=== PATIENT | male | born 1960 | race Two or more races ===

== ENCOUNTER 2024-07-20 02:49 | Emergency (ER) | payer MEDICARE, MEDICAID, SELFPAY ==
[2024-07-20] VITALS (7 sets, daily range): BP systolic 115–141; BP diastolic 69–77; PULSE 65–99; RESP 15–20; TEMP 36.7–37; O2SAT 94–98; BMI 24.5
--- NOTE | 2024-07-20 03:03 | XR_ITS ---
EXAMINATION: XR hip LT w pelvis 2-3V ORDERING PROVIDER: Milton Marrero MD HISTORY: fall TECHNIQUE: 3 radiographs of the pelvis and left hip were obtained. COMPARISON: 01/07/2024, pelvis and right hip radiographs. FINDINGS: Left hip arthroplasty changes. Similar mild uncovering of the lateral femoral head component. No periarticular lucencies or evidence of hardware fracture. Similar small bony foci about the left hip component may represent some heterotopic ossifications. Moderate right hip calcifications. Similar 1.7 cm density projects over the scrotum of uncertain clinical significance. Moderate rectal and colonic stool burden. IMPRESSION: Left hip arthroplasty changes without evidence of acute hardware complication or acute bony findings.
--- NOTE | 2024-07-20 03:05 | PD.EDADULT ---
ED General RME/HPI General Chief complaint: Extremity Injury, Lower Stated complaint: FALL Time Seen by Provider: 07/20/24 04:07 Arrival date/time: 07/20/24 02:49 RME / HPI RME / HPI narrative: Patient is 64 years old male with PMH of liver cirrhosis, Anastasia's disease, hypertension, GERD, chronic venous stasis dermatitis and multiple falls presented to the ED from [facility]F after he fell. He reports he got angry at nursing staff and decided to fall from the bed. He did not hit his head and landed directly on his left hip. He complains of left hip pain. He denies any chest pain, SOB, abdominal pain, shoulder pain, neck pain. Related Data Home Medications ?Medication ?Instructions ?Recorded ?Confirmed ascorbic acid (vitamin C) 500 mg 500 mg PO QDAY 04/05/23 02/18/24 tablet (Vitamin C) cholecalciferol (vitamin D3) 25 50 mcg PO QDAY 04/05/23 02/18/24 mcg (1,000 unit) tablet (Vitamin D3) lactulose 20 gram/30 mL oral 30 g PO QID high ammonia level 04/05/23 02/18/24 solution magnesium hydroxide 400 mg/5 mL 30 ml PO Q72H PRN Constipation 04/05/23 02/18/24 oral suspension (Milk of Magnesia) pantoprazole 40 mg tablet,delayed 40 mg PO QDAY 04/05/23 02/18/24 release spironolactone 25 mg tablet 37.5 mg PO HS fluid 04/05/23 02/18/24 retention/cirrhosis aluminum-mag hydroxide-simethicone 30 ml PO Q6H 02/05/24 02/18/24 200 mg-200 mg-20 mg/5 mL oral susp amino acids-protein hydrolysate 15 30 ea PO QDAY 02/05/24 02/18/24 gram-100 kcal/30 mL oral liquid pkt (Pro-Stat Sugar Free) melatonin 3 mg tablet 3 mg PO HS PRN for supplement 02/05/24 02/18/24 zinc acetate 50 mg (zinc) capsule 50 mg PO BID anastasia's disease 02/05/24 02/18/24 Previous Rx's ?Medication ?Instructions ?Recorded eyemxjmpauum-olppmctv-rzbaql 1 tab PO QDAY #30 tabs 03/26/23 tablet (Multivitamin 50 Plus tablet) hydrocodone 5 mg-acetaminophen 325 1 tab PO Q8H PRN pain #20 tabs 01/06/ mg tablet Allergies Allergy/AdvReac Type Severity Reaction Status Date / Time clavulanic acid (From Allergy Severe Hives Verified 07/20/24 03:20 Augmentin) Review of Systems Review of Systems Systems Reviewed: All systems reviewed, normal except as documented ED Exam Narrative Physical exam: Gen: Well-developed and well-nourished male. HEENT: NCAT, PERRLA, EOMI, MMM, anicteric conjunctivae, poor dentition. CVS: normal S1 and S2. RRR. No M/R/G. Resp: CTA B/L. No rhonchi, rales, crackles or wheezing. Abd: soft, non-tender, non-distended. BS+ in all 4 quadrants. MSK: Good ROM in BUE & RLE. Limited ROM in LLE due to pain. No edema. Venous stasis dermatitis BLE. Neuro: CN II-XII grossly intact. Strength 5/5 in BUE & RLE. Alert and oriented x3. Psych: appropriate mood and affect. Course Quality Measures none Orders Category Date Time Status EKG (ED ONLY) *Do not use* NOW Care 07/20/24 03:24 Completed Straight [In and Out Catheter] X1 Care 07/20/24 04:[address] cervical spine wo con Stat Exams 07/20/24 04:[address] head/brain wo con Stat Exams 07/20/24 04:08 Taken EKG (ED Only) Stat Exams 07/20/24 03:24 Draft XR hip LT w pelvis 2-3V Stat Exams 07/20/24 03:03 Taken CBC Stat Lab 07/20/24 03:32 Completed CMP [Comprehensive Metabolic Panel] Stat Lab 07/20/24 03:32 Completed Drug Screen,Urine Stat Lab 07/20/24 03:24 Ordered Magnesium Stat Lab 07/20/24 03:32 Completed Troponin I Stat Lab 07/20/24 03:32 Completed Urinalysis Stat Lab 07/20/24 03:24 Ordered Ketorolac Inj [Toradol Inj] Med 07/20/24 03:48 Discontinued 15 mg IVP X1 ONE Morphine Inj Med 07/20/24 05:26 Once 1 mg IVP X1 ONE Vital Signs Vital signs: Vital Signs Temperature 98.1 F 07/20/24 03:20 Pulse Rate 99 07/20/24 03:20 Respiratory Rate 20 07/20/24 03:20 Blood Pressure 141/73 H 07/20/24 03:20 Pulse Oximetry (%) 95 07/20/24 03:20 Oxygen Delivery Method Room Air 07/20/24 03:20 Procedures -ED EKG Interpretation #1: Date of EK07/20/24 Time of EK:34 Rate: 72 Interpretation: Reviewed by me EKG Impression: Normal sinus rhythm and Non-specific ST-T MDM Patient data External records reviewed:: [facility] previous records and EMS form Clinical information provided by:: patient and EMS Social determinants that could affect healthcare access:: none Patient has the following chronic illnesses:: liver cirrhosis, Anastasia's disease, hypertension, GERD, chronic venous stasis dermatitis and multiple falls How is presenting disease/condition affected by chronic disease/condition?: uneffected by Evaluation data The following diagnostics were reviewed and interpreted by me:: lab results, radiology exam(s) and EKG tracing(s) Lab and/or radiology exams considered but not ordered:: CT Interpretation Summary: pending teleradiology interpretation Medications Medications considered but not ordered:: na Medication administrations:: Medication Administration History Morphine Sulfate (Morphine Sulf Inj 10 Mg/Ml Vial) 1 mg IVP X1 ONE Stop: 07/20/24 05:27 Discontinued Medications Ketorolac Tromethamine (Ketorolac Inj 30 Mg/Ml Vial) 15 mg IVP X1 ONE Stop: 07/20/24 03:49 Last Admin: 07/20/24 04:08 Dose: 15 mg Documented By: EE as above Consultations Consultation(s) initiated? (list below): No Diagnosis Differential Diagnosis ED Complaint MDM: hip fracture, soft tissue trauma, pelvic fracture Most likely diagnosis given after review of the tests above:: s/p fall Admission Indicated Admission indicated?: not indicated (passed to day shift) Explain why admission is indicated or not indicated:: na Admission Request Was there a request for admission?: No Disposition Plan Disposition Plan: other (specify) (passed to day shift) Medical Decision Making Differential Diagnosis Differential Diagnosis: hip fracture, soft tissue trauma, pelvic fracture Lab Data 07/20/24 03:32 07/20/24 03:32 Labs: Lab Results 07/20/24 Range/Units 03:32 WBC 3.2 L (3.8-10.6) Thou/mm3 RBC 4.14 L (4.50-5.90) Miln/mm3 Hgb 13.3 L (13.5-16.0) g/dL Hct 39.8 L (41.0-53.0) % MCV 96 (80-100) fL MCH 32.1 (25.0-35.0) pg MCHC 33.4 (31.0-37.0) g/dl RDW Std Deviation 52.3 H (35.1-43.9) fL Plt Count 77 L (140-440) Thou/mm3 Neut % (Auto) 55 (37-80) % Lymph % (Auto) 30 (10-50) % [place] % (Auto) 10 (0-12) % Eos % (Auto) 5 (0-10) % Baso % (Auto) 0 (0-2.5) % Neut # (Auto) 1.7 L (1.8-7.7) Thou/mm3 Lymph # (Auto) 1.0 (1.0-4.8) Thou/mm3 [place] # (Auto) 0.3 (0.0-0.8) Thou/mm3 Eos # (Auto) 0.2 (0.0-0.5) Thou/mm3 Baso # (Auto) 0.0 (0.0-0.2) Thou/mm3 Immature Gran # (Auto) 0.01 H (0.00-0.00) Thou/mm3 Absolute Nucleated RBC 0.00 (0.00-0.00) Thou/mm3 Immature Gran % 0 (0-0) % Nucleated RBC % 0 (0) /100 WBC Sodium 142 (136-145) mMol/L Potassium 3.9 (3.4-5.1) mMol/L Chloride 111 H (98-107) mMol/L Carbon Dioxide 22.8 (20.0-31.0) mMol/L Anion Gap 8 (7-16) BUN 16 (9-23) mg/dL Creatinine 1.1 (0.6-1.3) mg/dL Estim Creat Clear Calc 67.0 (>60) mL/min eGFR > 60 (60 - ) See Note BUN/Creatinine Ratio 15 (12-20) Ratio Glucose 109 H (74-106) mg/dL Calculated Osmolality 285 (275-295) Calcium 8.8 (8.3-10.6) mg/dL Corrected Calcium 9.6 (8.5-10.1) mg/dL Magnesium 2.0 (1.6-2.6) mg/dL Total Bilirubin 1.6 H (0.3-1.2) mg/dL AST 30 (0-34) U/L ALT 24 (10-49) U/L Alkaline Phosphatase 188 H (46-116) U/L Troponin I < 0.020 (0.0-0.045) ng/mL Total Protein 6.9 (5.7-8.2) gm/dL Albumin 3.0 L (3.4-4.8) gm/dL Globulin 3.9 H (2.3-3.5) gm/dL Albumin/Globulin Ratio 0.8 L (1.2-2.2) Misc Test Result Platelets confirmed Discharge Plan Prescriptions/Referrals Prescriptions/Med Rec: No Action spironolactone 25 mg Tablet 37.5 mg PO HS magnesium hydroxide [Milk of Magnesia] 400 mg/5 mL Suspension 30 ml PO Q72H PRN (Reason: Constipation) ascorbic acid (vitamin C) [Vitamin C] 500 mg Tablet 500 mg PO QDAY pantoprazole 40 mg Tablet,Delayed Release (Dr/Ec) 40 mg PO QDAY cholecalciferol (vitamin D3) [Vitamin D3] 25 mcg (1,000 unit) Tablet 50 mcg PO QDAY lactulose 20 gram/30 mL Solution 30 g PO QID alum-mag hydroxide-simeth 200-200-20 mg/5 mL Suspension 30 ml PO Q6H melatonin 3 mg Tablet 3 mg PO HS PRN (Reason: for supplement) Pro-Stat Sugar Free 15 gram- 100 kcal/30 mL Liquid In Packet 30 ea PO QDAY zinc acetate 50 mg (zinc) Capsule 50 mg PO BID Multivitamin 50 Plus Tablet 1 tab PO QDAY Qty: 30 0RF hydrocodone-acetaminophen 5-325 mg tablet 1 tab PO Q8H MDD 3 tablets/day PRN (Reason: pain) Qty: 20 0RF Problem List Clinical Impression: Ground-level fall Patient/Caregiver Discharge Instructions Print Language: Yoruba Attestation MD Attestation I, Dr. Mendes, have reviewed the history, exam, and assessment of the patient. I have evaluated the patient independently and agree with the plan of care documented by resident Milton Marrero. All diagnostic studies were reviewed and discussed. I confirm the diagnosis as documented by the resident. I was present during the Medical Decision Making for this patient. The patient's plan of care was created between myself and the Resident and consistent with our discussion of the patient's case.
--- NOTE | 2024-07-20 03:24 | EKG_ITS ---
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
[2024-07-20 03:46] LABS: Basophils % (Auto) 0 % (0-2.5); Eosinophils # (Auto) 0.2 Thou/mm3 (0.0-0.5); Eosinophils % (Auto) 5 % (0-10); Hematocrit 39.8 % (41.0-53.0); Hemoglobin 13.3 g/dL (13.5-16.0); Immature Granulocytes % (Auto) 0 % (0-0); Immature Granulocytes Auto 0.01 Thou/mm3 (0.00-0.00); Lymphocytes % (Auto) 30 % (10-50); Mean Corpuscular HGB Conc 33.4 g/dl (31.0-37.0); Mean Corpuscular Hemoglobin 32.1 pg (25.0-35.0); Mean Corpuscular Volume 96 fL (80-100); Monocytes # (Auto) 0.3 Thou/mm3 (0.0-0.8); Monocytes % (Auto) 10 % (0-12); Neutrophils # (Auto) 1.7 Thou/mm3 (1.8-7.7); Neutrophils % (Auto) 55 % (37-80); Nucleated Red Blood Cell % 0 /100 WBC (0); RDW Standard Deviation 52.3 fL (35.1-43.9); Red Blood Count 4.14 Miln/mm3 (4.50-5.90); White Blood Count 3.2 Thou/mm3 (3.8-10.6)
[2024-07-20 03:48] LABS: Platelet Count 77 Thou/mm3 (140-440)
[2024-07-20 04:01] LABS: Alanine Aminotransferase 24 U/L (10-49); Albumin/Globulin Ratio 0.8 (1.2-2.2); Alkaline Phosphatase 188 U/L (46-116); Anion Gap 8 (7-16); Aspartate Amino Transferase 30 U/L (0-34); BUN/Creatinine Ratio 15 Ratio (12-20); Bilirubin,Total 1.6 mg/dL (0.3-1.2); Blood Urea Nitrogen 16 mg/dL (9-23); Calcium 8.8 mg/dL (8.3-10.6); Calcium (Corrected) 9.6 mg/dL (8.5-10.1); Carbon Dioxide 22.8 mMol/L (20.0-31.0); Chloride 111 mMol/L (98-107); Creatinine (Component) 1.1 mg/dL (0.6-1.3); Globulin 3.9 gm/dL (2.3-3.5); Glucose 109 mg/dL (74-106); Osmolality,Calculated 285 (275-295); Potassium 3.9 mMol/L (3.4-5.1); Sodium 142 mMol/L (136-145); Total Protein 6.9 gm/dL (5.7-8.2); eGFR > 60 See Note
[2024-07-20] MEDS: KETOROLAC INJ 30 MG/ML VIAL 15 MG IVP (04:08)
--- NOTE | 2024-07-20 04:08 | XR_ITS ---
Examination: CT brain head without contrast. 2-D sagittal coronal reconstructions Date and time of exam:July 20, 2024 0435 hrs. Indications: Patient fell today with injury to the head, head pain CTDI: vol (mGy):46.6 DLP: (mGycm):1126 Technique: Multiple CT axial sections of the brain have been obtained, 5 mm slice thickness. Contrast has not been administered. 2-D sagittal, coronal reconstructions have been obtained Low dose protocols were performed. One or more of the following dose reduction techniques were used; automated exposure control, adjustment of the mA and/or KV according to patient size, use of iterative reconstruction technique. Findings: No significant ventricular enlargement. Intra-axial or extra-axial hemorrhage density is not seen. No mass effect or midline shift Basal cisterns are not remarkable. Fourth ventricle is midline. Cranial vault intact. Impression: Negative for acute hemorrhage, mass effect or midline shift
--- NOTE | 2024-07-20 04:08 | XR_ITS ---
Examination: CT cervical spine without contrast 2-D sagittal reconstructions 2-D coronal reconstructions 3-D reconstructions. Exam date and time:July 2019 5043 hrs. Indications: Patient fell today with injury to the neck, neck pain. CTDI:vol (mGy) 7.69 DLP: (mGycm) 153 Technique: Multiple 2 mm axial sections of the cervical spine have been obtained. The coronal and sagittal reconstructions have been obtained. 3-D reconstructions have been obtained. Low dose protocols were performed. One or more of the following dose reduction techniques were used; automated exposure control, adjustment of the mA and/or KV according to patient size, use of iterative reconstruction technique. Findings: Axial sections demonstrate intact base of the skull. C1 exhibit satisfactory relationship to the odontoid. No acute cervical vertebral body fracture seen. Alignment posterior spinous processes satisfactory. Posterior cervical stabilization Impression: No acute cervical fracture.
[2024-07-20 04:24] LABS: Slide Review Platelets confirmed
[2024-07-20 04:29] LABS: Troponin I < 0.020 ng/mL (0.0-0.045)
--- NOTE | 2024-07-20 05:08 | PRELIM_ITS ---
CT scan of the head without intravenous contrast (axial sections with sagittal and coronal reformats) July 20, 2024 0435 hours Clinical History: fall Comparison: None. Findings: There is no evidence of intracranial hemorrhage, mass effect or midline shift. There are periventricular white matter hypodensities, compatible with chronic small vessel ischemia. There is severe volume loss. The calvarium is intact. The mastoid air cells and the visualized paranasal sinuses are clear. Impression: No evidence of intracranial hemorrhage, midline shift or calvarial fracture. Periventricular chronic small vessel ischemia and volume loss. Report Electronically Signed By: Damian Bella 07/20/2024 5:08:44 AM [EST]
--- NOTE | 2024-07-20 05:12 | PRELIM_ITS ---
CT scan of the cervical spine without intravenous contrast (axial sections with sagittal and coronal reformats). July 20, 2024 at 0435 hours Clinical History: Fall. Comparison: No prior study is available for comparison. Findings: Status post posterior laminectomy of the C2, C3, and C4. Posterior fusion hardware between C2, C3, C4, and C5. No evidence of hardware loosening or failure. Loss of the physiologic cervical lordosis. Chronic multilevel disc disease. There is no fracture or subluxation. The prevertebral soft tissues are unremarkable. Impression: No evidence of fracture or subluxation. Report Electronically Signed By: Damian Bella 07/20/2024 5:12:12 AM [EST]
[2024-07-20] MEDS: MORPHINE SULF INJ 10 MG/ML VIAL IVP (06:27)
--- NOTE | 2024-07-20 06:28 | EDNOTE_ITS ---
Emergency Room Addendum Addendum Narrative: 0600: Care assumed from resident Milton Marrero working with Dr. Mendes, the previous shift emergency physician. Past medical, surgical, social and family history reviewed. Vitals and home medications reviewed. I will assume the care of the patient at this time. Please refer to the emergency department record for history and examination from initial visit.? Physical exam by me shows patient under no acute distress at this time. 1030: Patient remains clinically stable throughout the emergency department visit. Re-assessment at the time of disposition demonstrates that the patient is in no acute distress. We reviewed all the results, analysis, and treatment plans. Patient is amenable to discharge. Strict return precautions were outlined. Patient was discharged in stable condition. Diagnosis: Ground-level fall RADIOLOGY Procedure(s): CT pelvis wo [facility] Accession Number(s): [id number] cc: Chastity Shetty MD; Tuan Sy MD; Xiomy Muse MD~ Examination: CT pelvis without intravenous contrast. 2-D sagittal and coronal reconstructions. Date and time of exam:July 20, 2024 0815 hrs. Indications: Patient fell today with injury to the pelvis, pelvic pain CTDI: vol (mGy) :11.7 DLP: (mGycm) : 111 Technique: Multiple 3 mm axial sections of the pelvis have been obtained with the 64 slice high resolution scanner. 2-D sagittal and coronal reconstructions. Low dose protocols were performed. One or more of the following dose reduction techniques were used; automated exposure control, adjustment of the mA and/or KV according to patient size, use of iterative reconstruction technique. Findings: No pelvic hematoma Urinary bladder intact Sacral segments iliac bones acetabular regions anterior rami appear intact No right hip fracture or hip dislocation, significant narrowing right hip joint Left hip bipolar hemiarthroplasty with satisfactory alignment The images do not extend below the prosthetic stem left hip Impression: No acute hip or pelvic fracture Dictated By: Tuan Sy MD Procedure(s): CT head/brain wo con Accession Number(s): [id number] cc: Milton Marrero MD; Chastity Shetty MD; Tuan Sy MD~ Examination: CT brain head without contrast. 2-D sagittal coronal reconstructions Date and time of exam:July 20, 2024 0435 hrs. Indications: Patient fell today with injury to the head, head pain CTDI: vol (mGy):46.6 DLP: (mGycm):1126 Technique: Multiple CT axial sections of the brain have been obtained, 5 mm slice thickness. Contrast has not been administered. 2-D sagittal, coronal reconstructions have been obtained Low dose protocols were performed. One or more of the following dose reduction techniques were used; automated exposure control, adjustment of the mA and/or KV according to patient size, use of iterative reconstruction technique. Findings: No significant ventricular enlargement. Intra-axial or extra-axial hemorrhage density is not seen. No mass effect or midline shift Basal cisterns are not remarkable. Fourth ventricle is midline. Cranial vault intact. Impression: Negative for acute hemorrhage, mass effect or midline shift Dictated By: Tuan Sy MD Procedure(s): CT cervical spine wo con Accession Number(s): [id number] cc: Milton Marrero MD; Chastity Shetty MD; Tuan Sy MD~ Examination: CT cervical spine without contrast 2-D sagittal reconstructions 2-D coronal reconstructions 3-D reconstructions. Exam date and time:July 2019 5043 hrs. Indications: Patient fell today with injury to the neck, neck pain. CTDI:vol (mGy) 7.69 DLP: (mGycm) 153 Technique: Multiple 2 mm axial sections of the cervical spine have been obtained. The coronal and sagittal reconstructions have been obtained. 3-D reconstructions have been obtained. Low dose protocols were performed. One or more of the following dose reduction techniques were used; automated exposure control, adjustment of the mA and/or KV according to patient size, use of iterative reconstruction technique. Findings: Axial sections demonstrate intact base of the skull. C1 exhibit satisfactory relationship to the odontoid. No acute cervical vertebral body fracture seen. Alignment posterior spinous processes satisfactory. Posterior cervical stabilization Impression: No acute cervical fracture. Dictated By: Tuan Sy MD ------ Procedure(s): XR hip LT w pelvis 2-3V Accession Number(s): [id number] cc: Thony Arriaza MD; Milton Marrero MD; Chastity Shetty MD~ EXAMINATION: XR hip LT w pelvis 2-3V ORDERING PROVIDER: Milton Marrero MD HISTORY: fall TECHNIQUE: 3 radiographs of the pelvis and left hip were obtained. COMPARISON: 01/07/2024, pelvis and right hip radiographs. FINDINGS: Left hip arthroplasty changes. Similar mild uncovering of the lateral femoral head component. No periarticular lucencies or evidence of hardware fracture. Similar small bony foci about the left hip component may represent some heterotopic ossifications. Moderate right hip calcifications. Similar 1.7 cm density projects over the scrotum of uncertain clinical significance. Moderate rectal and colonic stool burden. IMPRESSION: Left hip arthroplasty changes without evidence of acute hardware complication or acute bony findings. Dictated By: Thony Arriaza MD
--- NOTE | 2024-07-20 06:35 | XR_ITS ---
Examination: CT pelvis without intravenous contrast. 2-D sagittal and coronal reconstructions. Date and time of exam:July 20, 2024 0815 hrs. Indications: Patient fell today with injury to the pelvis, pelvic pain CTDI: vol (mGy) :11.7 DLP: (mGycm) : 111 Technique: Multiple 3 mm axial sections of the pelvis have been obtained with the 64 slice high resolution scanner. 2-D sagittal and coronal reconstructions. Low dose protocols were performed. One or more of the following dose reduction techniques were used; automated exposure control, adjustment of the mA and/or KV according to patient size, use of iterative reconstruction technique. Findings: No pelvic hematoma Urinary bladder intact Sacral segments iliac bones acetabular regions anterior rami appear intact No right hip fracture or hip dislocation, significant narrowing right hip joint Left hip bipolar hemiarthroplasty with satisfactory alignment The images do not extend below the prosthetic stem left hip Impression: No acute hip or pelvic fracture
[2024-07-20 06:59] LABS: Collection Type, Urine Clean Catch
[2024-07-20 07:35] LABS: Bacteria,Urine Rare; Bilirubin,Urine Negative (Negative); Blood,Urine 2+ (Negative); Calcium Oxalate Crystals,Urine 1+; Color,Urine Yellow (Lt Yel-Yel); Glucose, Urine Negative (Negative); Ketones,Urine Negative (Negative); Leukocyte Esterase,Urine Positive (Negative); Nitrite,Urine Negative (Negative); PH,Urine 6.5 (5.0-7.0); Protein,Urine Trace (Neg - Trace); RBC,Urine 308 /hpf (0-3); Specific Gravity,Urine 1.017 (1.001-1.035); Squamous Epithelial Cell,Urine 2 /hpf (0-5); WBC,Urine 13 /hpf (0-5)
[2024-07-20 07:41] LABS: Clarity,Urine Hazy (Clear/Hazy)
[2024-07-20 08:07] LABS: Amphetamine/Methamp Scrn,U Negative (Negative); Barbiturate Screen,Urine Negative (Negative); Benzodiazepines Screen,Urine Negative (Negative); Benzoylecgonine Screen, Ur Negative (Negative); Fentanyl Screen,Urine Negative (Negative); Opiate Screen,Urine Negative (Negative); THC Screen,Urine Negative (Negative)
--- NOTE | 2024-07-20 14:38 | PC.CC ---
Mitzi GARCIA was consulted by THAD Winn regarding transportation back to [facility] for the patietn. ASW made contact with [facility] to arrange transportation for the patient.
== END 2024-07-20 14:48 | disposition home or self-care (01) ==
PROVIDERS: Student in an Organized Health Care Education/Training Program; Emergency Provider Emergency Medicine; PCP Hospitalist
DX: S39.93XA Unspecified injury of pelvis, initial encounter (principal); S19.9XXA Unspecified injury of neck, initial encounter; S09.90XA Unspecified injury of head, initial encounter; I87.2 Venous insufficiency (chronic) (peripheral); R94.31 Abnormal electrocardiogram [ECG] [EKG]; W06.XXXA Fall from bed, initial encounter; Z96.642 Presence of left artificial hip joint; I10 Essential (primary) hypertension; R29.6 Repeated falls
CPT/HCPCS: 36415; 70450; 72125; 72192; 73502; 80053; 80307; 81001; 83735; 84484; 85025; 93005; 96374; 99284; J1885; J2270

== ENCOUNTER 2024-09-19 12:11 | Emergency (ER) | payer MEDICARE, MEDICAID, SELFPAY ==
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
[2024-09-19 12:27] VITALS: BP 135/76; PULSE 79; RESP 18; TEMP 36.3; O2SAT 98
[2024-09-19 12:28] VITALS: BMI 26.6
[2024-09-19 12:36] VITALS: PULSE 84; O2SAT 96; BMI 26.6
--- NOTE | 2024-09-19 12:47 | RESP.EEG ---
PER JITENDRA N/P, I'M NOT ORDERING A HOLD BUT YOU NEED TO HAVE SOMEONE WATCH HIM.
[2024-09-19 13:17] LABS: Basophils % (Auto) 0 % (0-2.5); Eosinophils # (Auto) 0.1 Thou/mm3 (0.0-0.5); Eosinophils % (Auto) 3 % (0-10); Hematocrit 40.3 % (41.0-53.0); Hemoglobin 13.9 g/dL (13.5-16.0); Immature Granulocytes % (Auto) 0 % (0-0); Immature Granulocytes Auto 0.01 Thou/mm3 (0.00-0.00); Lymphocytes # (Auto) 0.6 Thou/mm3 (1.0-4.8); Lymphocytes % (Auto) 23 % (10-50); Mean Corpuscular HGB Conc 34.5 g/dl (31.0-37.0); Mean Corpuscular Hemoglobin 32.9 pg (25.0-35.0); Mean Corpuscular Volume 95 fL (80-100); Monocytes # (Auto) 0.3 Thou/mm3 (0.0-0.8); Monocytes % (Auto) 11 % (0-12); Neutrophils # (Auto) 1.7 Thou/mm3 (1.8-7.7); Neutrophils % (Auto) 63 % (37-80); Nucleated Red Blood Cell % 0 /100 WBC (0); RDW Standard Deviation 45.8 fL (35.1-43.9); Red Blood Count 4.23 Miln/mm3 (4.50-5.90)
[2024-09-19 13:25] LABS: Platelet Count 78 Thou/mm3 (140-440); White Blood Count 2.7 Thou/mm3 (3.8-10.6)
[2024-09-19 14:05] VITALS: BP 146/77; PULSE 100; RESP 18; TEMP 36.4; O2SAT 100
[2024-09-19 14:35] LABS: Slide Review Platelets confirmed
[2024-09-19 14:47] LABS: Collection Type, Urine Clean Catch
[2024-09-19 15:07] LABS: Alcohol, Urine Negative (Negative); Amphetamine/Methamp Scrn,U Negative (Negative); Barbiturate Screen,Urine Negative (Negative); Benzodiazepines Screen,Urine Negative (Negative); Benzoylecgonine Screen, Ur Negative (Negative); Fentanyl Screen,Urine Negative (Negative); Opiate Screen,Urine Negative (Negative); THC Screen,Urine Negative (Negative)
[2024-09-19 15:13] LABS: Bilirubin,Urine Negative (Negative); Blood,Urine 1+ (Negative); Clarity,Urine Hazy (Clear/Hazy); Color,Urine Lt-Yellow (Lt Yel-Yel); Glucose, Urine Negative (Negative); Ketones,Urine Negative (Negative); Leukocyte Esterase,Urine Positive (Negative); Nitrite,Urine Negative (Negative); PH,Urine 6.5 (5.0-7.0); Protein,Urine Negative (Neg - Trace); RBC,Urine 26 /hpf (0-3); Specific Gravity,Urine 1.014 (1.001-1.035); Squamous Epithelial Cell,Urine < 1 /hpf (0-5); Urobilinogen,Urine Negative mg/dL (0.0-1.0); WBC,Urine 11 /hpf (0-5)
[2024-09-19 16:05] VITALS: BP 107/75; PULSE 68; RESP 18; TEMP 36.6; O2SAT 93
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
--- NOTE | 2024-09-19 16:37 | PC.NURSE ---
per jayne foster care social worker, pt is cleared for discharged
[2024-09-19] MEDS: DIPHTH,PERTUSS(ACELL),TET VAC 0.5 ML SYR- ADULT IMi (16:42)
--- NOTE | 2024-09-19 16:46 | PC.SS ---
Addendum entered by ZEN Bird 09/19/24 17:02: Bed side nurse updated. Addendum entered by ZEN Bird 09/19/24 17:01: ETA [facility] 1900. Original Note: [facility] reference number for transport: [id number]. Pending ETA.
== END 2024-09-19 18:23 | disposition skilled nursing facility (03) ==
PROVIDERS: Registered Nurse General Practice; Emergency Provider Family Medicine; PCP Family Medicine
DX: S71.112A Laceration without foreign body, left thigh, initial encounter (principal); X78.8XXA Intentional self-harm by other sharp object, initial encounter; Z23 Encounter for immunization
CPT/HCPCS: 36415; 80307; 80320; 81001; 85025; 90471; 90715; 90839; 96127; 99284; G0480

== ENCOUNTER 2024-11-14 08:05 | Emergency (ER) | payer MEDICARE, MEDICAID, OTHER, SELFPAY ==
[2024-11-14 08:14] VITALS: BP 120/72; PULSE 87; RESP 18; TEMP 36.5; O2SAT 97; BMI 27.0
[2024-11-14 08:32] VITALS: BMI 27.0
[2024-11-14 08:46] VITALS: PULSE 75
--- NOTE | 2024-11-14 09:18 | XR_ITS ---
Examination: AP chest single view Technique: AP portable semiupright chest single view Date and time: November 14, 2024 at 0923 hours Comparison 02/02/2025 INDICATIONS: Chest pain today. FINDINGS: Mild prominence left ventricle Minimal opacity left base retrocardiac Prominent osteopenia IMPRESSION: Recommend lateral chest view follow-up to exclude early pneumonia left base
[2024-11-14 09:41] LABS: Basophils # (Auto) 0.0 Thou/mm3 (0.0-0.2); Basophils % (Auto) 0 % (0-2.5); Eosinophils # (Auto) 0.1 Thou/mm3 (0.0-0.5); Eosinophils % (Auto) 2 % (0-10); Hematocrit 38.3 % (41.0-53.0); Hemoglobin 13.3 g/dL (13.5-16.0); Immature Granulocytes Auto 0.02 Thou/mm3 (0.00-0.00); Lymphocytes # (Auto) 0.7 Thou/mm3 (1.0-4.8); Lymphocytes % (Auto) 14 % (10-50); Mean Corpuscular HGB Conc 34.7 g/dl (31.0-37.0); Mean Corpuscular Hemoglobin 33.1 pg (25.0-35.0); Mean Corpuscular Volume 95 fL (80-100); Monocytes # (Auto) 0.4 Thou/mm3 (0.0-0.8); Monocytes % (Auto) 8 % (0-12); Neutrophils # (Auto) 3.6 Thou/mm3 (1.8-7.7); Neutrophils % (Auto) 75 % (37-80); Nucleated Red Blood Cell # 0.00 Thou/mm3 (0.00-0.00); Nucleated Red Blood Cell % 0 /100 WBC (0); Platelet Count 95 Thou/mm3 (140-440); RDW Standard Deviation 52.5 fL (35.1-43.9); Red Blood Count 4.02 Miln/mm3 (4.50-5.90); White Blood Count 4.8 Thou/mm3 (3.8-10.6)
--- NOTE | 2024-11-14 09:48 | EDNOTE_ITS ---
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 States she was transferring from his bed to wheelchair when his feet became tangled in the bed sheets. causing him to fall forward. States he struck his chest on the floor and on impact heard a crack followed by chest pain. Described as aching in sensation, located most to the center of chest without radiation, rating as moderate. No other associated symptoms or complaints reported. Denied head injury or LOC. Related Data Home Medications ?Medication ?Instructions ?Recorded ?Confirmed ascorbic acid (vitamin C) 500 mg 500 mg PO QDAY 02/18/24 tablet (Vitamin C) cholecalciferol (vitamin D3) 25 50 mcg PO QDAY 3 02/18/24 mcg (1,000 unit) tablet (Vitamin D3) lactulose 20 gram/30 mL oral 30 g PO QID high ammonia level 04/05/23 02/18/24 solution magnesium hydroxide 400 mg/5 mL 30 ml PO Q72H PRN Cons tipation 04/05/23 02/18/24 oral suspension (Milk of Magnesia) pantoprazole 40 mg tablet,delayed 40 mg PO QDAY 02/18/24 release spironolactone 25 mg tablet 37.5 mg PO HS fluid 02/18/24 retention/cirrhosis aluminum-mag hydroxide-simethicone 30 ml PO Q6H 02/18/24 200 mg-200 mg-20 mg/5 mL oral susp amino acids-protein hydrolysate 15 30 ea PO QDAY 02/0402/18/24 gram-100 kcal/30 mL oral liquid pkt (Pro-Stat Sugar Free) melatonin 3 mg tablet 3 mg PO HS PRN for supplemen t 02/05/24 02/18/24 zinc acetate 50 mg (zinc) capsule 50 mg PO BID jimmy' s disease 02/05/24 02/18/24 Previous Rx's ?Medication ?Instructions ?Recorded [id number] 1 tab PO QDAY #30 tabs tablet (Multivitamin 50 Plus tablet) hydrocodone 5 mg-acetaminophen 325 1 tab PO Q8H PRN pa in #20 tabs 01/07/24 mg tablet Allergies Allergy/AdvReac Type Severity Reaction Status Date / Time clavulanic acid (From Allergy Severe Hives Verified 11/14/24 08:40 Augmentin) Review of Systems Review of Systems Systems Reviewed: All systems reviewed, normal except as documented Past Medical History Past Medical History NEUROLOGIC: Positive Migraine CARDIAC: Positive Congestive Heart Failure, Edema, Cellulitis, Deep Vein Thrombosis and Hypertension RESPIRATORY: Positive Asthma and Pneumonia GASTROINTESTINAL: Positive Gastrointestinal Disorders, Cirrhosis, Esophageal Varices and Ulcer GENITOURINARY: Positive Kidney Stones and Inguinal Hernia MUSCULOSKELETAL: Positive Gout HEMATOLOGIC: Positive Blood Disorders and Anemia OTHER HISTORY: Positive Hospitalization, Falls, Blood Transfusions and Chicken Pox Family History FAMILY HISTORY: Positive Family Gastrointestinal Problems Social History SMOKING STATUS: Former smoker ED Exam General Limitations: Present no limitations General appearance: Present alert and in no apparent distress Head Head exam: Present atraumatic and normocephalic Eye Eye exam: Present normal appearance, PERRL and EOMI ENT ENT exam: Present normal exam, normal oropharynx and mucous membranes moist Neck Neck exam: Present normal inspection, full ROM and trachea midline Chest Chest inspection: Present normal inspection, symmetric chest wall rise and other (No palpable tenderness ) Respiratory Respiratory exam: Present normal lung sounds bilaterally Cardiovascular Cardiovascular exam: Present regular rate, normal rhythm and normal heart sounds Abdominal Exam Abdominal exam: Present soft and normal bowel sounds Extremities Exam Extremities exam: Present normal inspection and full ROM Back Exam Back exam: Present normal inspection and full ROM Neurological Exam Neurological exam: Present alert, oriented X3 and CN II-XII intact Psychiatric Psychiatric exam: Present normal affect and normal mood Skin Skin exam: Present warm, dry, intact and normal color Course Quality Measures none Orders Category Date Time Status 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 Chest Pain MDM Narrative MDM Narrative:: Barb Gilliam am scribing for and in the presence of Dr. Lugo. 64 year old male presented to the ED BIBA for evaluation of chest pain following a fall earlier today. Patient reports while transferring from bed to wheelchair, his feet became entangled in the bed sheets, resulting in a forward fall. He struck his chest on the floor, immediately hearing a ?crack? and subsequently developing moderate aching chest pain localized to the center of the chest, without radiation. There are no associated symptoms such as shortness of breath, palpitations, or syncope. He denies any head trauma or loss of consciousness. Labs performed shows no leukocytosis. Chest X-ray revealed an opacity at the lung base, which upon review appears to be a reflection of the cardiac silhouette and diaphragm rather than an infiltrate or acute pulmonary pathology. The patient remains asymptomatic. Given the absence of acute cardiopulmonary findings, stable vital signs, the chest pain is likely musculoskeletal and related to the trauma sustained during the fall. Patient data External records reviewed:: [facility] previous records (I reviewed ED Visit on 09/19/2024 ), EMS form and Assisted records (I reviewed PMHx and medication list from [facility] ) Clinical information provided by:: patient and EMS Social determinants that could affect healthcare access:: housing (SNF resident ) Patient has the following chronic illnesses:: Osteoporosis with current pathological fracture right pelvis, DVT, Jimmy's disease, CHF, liver cirrhosis, How is presenting disease/condition affected by chronic disease/condition?: exacerbated by Evaluation data The following diagnostics were reviewed and interpreted by me:: lab results and radiology exam(s) Lab and/or radiology exams considered but not ordered:: None Interpretation Summary: Ordering Physician: Lukas Lugo MD Date of Service: 11/14/24 Procedure(s): XR chest 1V portable Accession Number(s): [id number] cc: Lukas Lugo MD; Tuan Sy MD; rEwin Avilez MD~ Examination: AP chest single view Technique: AP portable semiupright chest single view Date and time: November 14, 2024 at 0923 hours Comparison 02/02/2025 INDICATIONS: Chest pain today. FINDINGS: Mild prominence left ventricle Minimal opacity left base retrocardiac Prominent osteopenia IMPRESSION: Recommend lateral chest view follow-up to exclude early pneumonia left base Dictated By: Tuan Sy MD Signed By: <Electronically signed by Tuan Sy MD in OV> 11/14/24 0916 Medications / Prescriptions Medications or Prescriptions considered but not ordered:: None Medication administrations:: None Consultations Consultation(s) initiated? (list below): No Diagnosis Chest Pain Differential Diagnosis: fracture of rib, pneumothorax, costochondritis and chest pain Most likely diagnosis given after review of the tests above:: Costochondritis Admission Indicated Admission indicated?: not indicated Explain why admission is indicated or not indicated:: Does not meet admission criteria Admission Request Was there a request for admission?: No Disposition Plan Disposition Plan: Discharge Discharge Attestation Discharge Attestation: The patient and all family members were given an opportunity to ask questions and understood the discharge instructions. Discharge instructions specifically effects, indications for sooner follow up or return to the emergency department, and the expected course of current diagnosis. Patient condition: Stable Discharge Plan Plan Patient Disposition: Xfer Skilled [facility] (SNF) Discharge Disposition comment: back to [facility] Prescriptions/Referrals Prescriptions/Med Rec: No Action spironolactone 25 mg Tablet 37.5 mg PO HS magnesium hydroxide [Milk of Magnesia] 400 mg/5 mL Suspension 30 ml PO Q72H PRN (Reason: Constipation) ascorbic acid (vitamin C) [Vitamin C] 500 mg Tablet 500 mg PO QDAY pantoprazole 40 mg Tablet,Delayed Release (Dr/Ec) 40 mg PO QDAY cholecalciferol (vitamin D3) [Vitamin D3] 25 mcg (1,000 unit) Tablet 50 mcg PO QDAY lactulose 20 gram/30 mL Solution 30 g PO QID alum-mag hydroxide-simeth 200-200-20 mg/5 mL Suspension 30 ml PO Q6H melatonin 3 mg Tablet 3 mg PO HS PRN (Reason: for supplement) Pro-Stat Sugar Free 15 gram- 100 kcal/30 mL Liquid In Packet 30 ea PO QDAY zinc acetate 50 mg (zinc) Capsule 50 mg PO BID Multivitamin 50 Plus Tablet 1 tab PO QDAY Qty: 30 0RF hydrocodone-acetaminophen 5-325 mg tablet 1 tab PO Q8H MDD 3 tablets/day PRN (Reason: pain) Qty: 20 0RF Referrals: Erwin Avilez MD [Primary Care Provider] - In 1 week Problem List Clinical Impression: Costochondritis Patient/Caregiver Discharge Instructions Education Materials: ED Chest Wall Pain, Costochondritis Additional Instructions: Follow-up with your primary care doctor in 3 to 5 days for recheck. You can return to the emergency department sooner if symptoms worsen or if you notice any new, concerning issues. For pain, take both 1-2 Tylenol 500mg tablets every 6 hours AND 2 Advil Gel 200mg capsules every 6 hours. Print Language: Swazi Stand Alone Forms: [employer] Award Info., Patient Portal Info Letter
[2024-11-14 10:00] LABS: Alanine Aminotransferase 14 U/L (10-49); Albumin, Serum 3.1 gm/dL (3.4-4.8); Albumin/Globulin Ratio 0.7 (1.2-2.2); Alkaline Phosphatase 187 U/L (46-116); Anion Gap 9 (7-16); Aspartate Amino Transferase 27 U/L (0-34); BUN/Creatinine Ratio 12 Ratio (12-20); Bilirubin,Total 1.4 mg/dL (0.3-1.2); Blood Urea Nitrogen 16 mg/dL (9-23); Calcium 8.9 mg/dL (8.3-10.6); Calcium (Corrected) 9.6 mg/dL (8.5-10.1); Carbon Dioxide 27.1 mMol/L (20.0-31.0); Chloride 107 mMol/L (98-107); Creatinine (Component) 1.3 mg/dL (0.6-1.3); Estimated Creatinine Clearance 56.7 mL/min (>60); Globulin 4.2 gm/dL (2.3-3.5); Glucose 120 mg/dL (74-106); Osmolality,Calculated 287 (275-295); Potassium 3.7 mMol/L (3.4-5.1); Sodium 143 mMol/L (136-145); Total Protein 7.3 gm/dL (5.7-8.2); eGFR > 60 See Note
[2024-11-14 10:22] VITALS: BP 108/60; PULSE 72; RESP 20; TEMP 36.4; O2SAT 96
[2024-11-14 12:10] VITALS: BP 107/66; PULSE 65; RESP 17; TEMP 36.3; O2SAT 95
--- NOTE | 2024-11-14 12:32 | PC.NURSE ---
This clinical writer updated Billie at [facility] with diagnosis and plans on discharge back to facility.
--- NOTE | 2024-11-14 13:43 | PC.CC ---
P/u ETA 1630 for pt. ASW arranged transportation via [employer]. packet is ready.
[2024-11-14 15:24] VITALS: BP 100/65; PULSE 70; RESP 18; TEMP 36.3; O2SAT 95
--- NOTE | 2024-11-14 17:59 | PC.NURSE ---
report given to Billie at [facility], patient transferring back to facility via ambulance.
[2024-11-14 18:00] VITALS: BP 109/65; PULSE 69; RESP 20; O2SAT 96
== END 2024-11-14 18:02 | disposition skilled nursing facility (03) ==
PROVIDERS: Emergency Provider Family Medicine; PCP Family Medicine
DX: M94.0 Chondrocostal junction syndrome [Tietze] (principal); I50.32 Chronic diastolic (congestive) heart failure
CPT/HCPCS: 36415; 71045; 80053; 85025; 99283

== ENCOUNTER 2025-03-10 09:51 | Emergency (ER) | payer OTHER, MEDICAID, SELFPAY ==
[2025-03-10] VITALS (8 sets, daily range): BP systolic 116–159; BP diastolic 65–98; PULSE 66–87; RESP 16–24; TEMP 36.6–36.8; O2SAT 92–99; BMI 23.6; BMI 27.0
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
--- NOTE | 2025-03-10 10:31 | XR_ITS ---
EXAMINATION: AP chest single view TECHNIQUE: AP portable upright chest single view Date and time: March 10, 2025, 10:39 a.m. INDICATIONS: Shortness of breath today. FINDINGS: Minor prominence left ventricle No pneumonia or pulmonary edema Mild elevation left hemidiaphragm Prominent osteopenia Minor atelectasis left base IMPRESSION: No pneumonia or pulmonary edema
--- NOTE | 2025-03-10 10:31 | XR_ITS ---
Examination: Venous duplex lower extremity sonogram, bilateral. Date and time of exam: March 10, 2025, 1159 hours INDICATIONS: Bilateral leg edema beginning 1 month ago Technique: Multiple sonographic images of the deep venous system have been obtained. B-mode/2-D grayscale imaging of vascular structures and Doppler spectral analysis (waveforms) and color performed Both legs are examined. Findings: Deep venous systems do not demonstrate abnormal echogenicity. All visualized deep veins exhibit compressibility. All visualized deep veins exhibit augmentation. Impression: Negative for deep vein thrombosis
--- NOTE | 2025-03-10 10:31 | XR_ITS ---
Examination: CT brain head without contrast. 2-D sagittal coronal reconstructions Date and time of exam: March 10, 2025, 1057 hours INDICATIONS: Onset altered mental status today COMPARISON: 04/2025 CTDI: vol (mGy): 52.2 DLP: (mGycm): 1000 Technique: Multiple CT axial sections of the brain have been obtained, 5 mm slice thickness. Contrast has not been administered. 2-D sagittal, coronal reconstructions have been obtained Low dose protocols were performed. One or more of the following dose reduction techniques were used; automated exposure control, adjustment of the mA and/or KV according to patient size, use of iterative reconstruction technique. Findings: No significant ventricular enlargement. Intra-axial or extra-axial hemorrhage density is not seen. No mass effect or midline shift Basal cisterns are not remarkable. Fourth ventricle is midline. Cranial vault intact. Impression: Negative for acute hemorrhage, mass effect or midline shift Advise clinical correlation and follow-up accordingly
[2025-03-10 11:04] LABS: Lactate (Lactic Acid) 1.9 mMol/L (0.4-2.0)
[2025-03-10 11:10] LABS: Beta Hydroxybutyrate 0.2 mmol/L (<0.6)
[2025-03-10] MEDS: SODIUM CHLORIDE 0.9% 1000 ML 1,000 ML 999 ML IV (11:10)
[2025-03-10 11:15] LABS: Basophils # (Auto) 0.0 Thou/mm3 (0.0-0.2); Basophils % (Auto) 0 % (0-2.5); Eosinophils # (Auto) 0.1 Thou/mm3 (0.0-0.5); Eosinophils % (Auto) 2 % (0-10); Hematocrit 42.0 % (41.0-53.0); Hemoglobin 14.2 g/dL (13.5-16.0); Immature Granulocytes Auto 0.01 Thou/mm3 (0.00-0.00); Lymphocytes # (Auto) 0.6 Thou/mm3 (1.0-4.8); Lymphocytes % (Auto) 19 % (10-50); Mean Corpuscular HGB Conc 33.8 g/dl (31.0-37.0); Mean Corpuscular Hemoglobin 32.1 pg (25.0-35.0); Mean Corpuscular Volume 95 fL (80-100); Monocytes # (Auto) 0.3 Thou/mm3 (0.0-0.8); Monocytes % (Auto) 8 % (0-12); Neutrophils # (Auto) 2.3 Thou/mm3 (1.8-7.7); Neutrophils % (Auto) 70 % (37-80); Nucleated Red Blood Cell # 0.00 Thou/mm3 (0.00-0.00); Nucleated Red Blood Cell % 0 /100 WBC (0); RDW Standard Deviation 51.3 fL (35.1-43.9); Red Blood Count 4.43 Miln/mm3 (4.50-5.90); White Blood Count 3.3 Thou/mm3 (3.8-10.6)
[2025-03-10 11:36] LABS: Collection Type, Urine Clean Catch
[2025-03-10 11:41] LABS: Platelet Count 71 Thou/mm3 (140-440)
[2025-03-10 11:52] LABS: Acetaminophen < 2.0 mcg/mL (10.0-20.0); Alanine Aminotransferase 28 U/L (10-49); Albumin, Serum 3.5 gm/dL (3.4-4.8); Albumin/Globulin Ratio 1.0 (1.2-2.2); Alcohol, Blood Medical < 3.0 mg/dL (0-10.0); Alkaline Phosphatase 195 U/L (46-116); Anion Gap 10 (7-16); Aspartate Amino Transferase 45 U/L (0-34); BUN/Creatinine Ratio 13 Ratio (12-20); Bilirubin,Direct 0.6 mg/dL (0.0-0.3); Bilirubin,Total 1.6 mg/dL (0.3-1.2); Blood Urea Nitrogen 18 mg/dL (9-23); C-Reactive Protein 0.5 mg/dL (0.0-0.9); Calcium 9.2 mg/dL (8.3-10.6); Calcium (Corrected) 9.6 mg/dL (8.5-10.1); Carbon Dioxide 25.0 mMol/L (20.0-31.0); Chloride 108 mMol/L (98-107); Creatinine (Component) 1.4 mg/dL (0.6-1.3); Estimated Creatinine Clearance 52.6 mL/min (>60); Globulin 3.4 gm/dL (2.3-3.5); Glucose 115 mg/dL (74-106); Lipase 32 U/L (12-53); Magnesium 1.9 mg/dL (1.6-2.6); Osmolality,Calculated 287 (275-295); Potassium 4.4 mMol/L (3.4-5.1); Procalcitonin 0.09 ng/ml (0.0-0.49); Salicylate < 3.0 mg/dL; Sodium 143 mMol/L (136-145); Thyroid Stimulating Hormone 3.93 uIU/mL (0.55-4.78); Total Protein 6.9 gm/dL (5.7-8.2); Troponin I < 0.020 ng/mL (0.0-0.045); eGFR 56 See Note
[2025-03-10 11:55] LABS: Influenza A Ag Negative; Influenza B Ag Negative
[2025-03-10 12:01] LABS: Bilirubin,Urine Negative (Negative); Blood,Urine 3+ (Negative); Clarity,Urine Turbid (Clear/Hazy); Color,Urine Yellow (Lt Yel-Yel); Glucose, Urine Negative (Negative); Ketones,Urine Negative (Negative); Leukocyte Esterase,Urine Positive (Negative); Nitrite,Urine Negative (Negative); PH,Urine 6.5 (5.0-7.0); Protein,Urine Trace (Neg - Trace); RBC,Urine 786 /hpf (0-3); Specific Gravity,Urine 1.012 (1.001-1.035); Squamous Epithelial Cell,Urine 3 /hpf (0-5); Urobilinogen,Urine Negative mg/dL (0.0-1.0); WBC,Urine 25 /hpf (0-5)
[2025-03-10 12:02] LABS: Amphetamine/Methamp Scrn,U Negative (Negative); Barbiturate Screen,Urine Negative (Negative); Benzodiazepines Screen,Urine Positive (Negative); Benzoylecgonine Screen, Ur Negative (Negative); Fentanyl Screen,Urine Negative (Negative); Opiate Screen,Urine Negative (Negative); THC Screen,Urine Negative (Negative)
[2025-03-10 12:06] LABS: Culture Indicated,Urine Yes
--- NOTE | 2025-03-10 12:15 | XR_ITS ---
Examination: CT chest, without intravenous contrast. CT abdomen, without intravenous contrast. CT pelvis, without intravenous contrast. 2-D sagittal and coronal reconstructions. 3-D reconstructions. Date and time of exam: March 10, 2025 1238 hours INDICATIONS: Shortness of breath chest pain hematuria today CTDI vol (mgy) 9.02 DLP (MGycm) 681 Technique: Multiple CT images, 3.0 mm slice thickness, obtained chest, abdomen, pelvis, with the high-resolution 64 slice scanner.. Sagittal and coronal 2-D reconstructions are obtained. 3-D reconstructions Low dose protocols were performed. One or more of the following dose reduction techniques were used; automated exposure control, adjustment of the mA and/or KV according to patient size, use of iterative reconstruction technique. Findings: No thoracic aortic aneurysm dilatation Pulmonary artery segments are not enlarged. No paratracheal or tracheobronchial bronchopulmonary adenopathy Retrocardiac gastric hernia Atelectasis in the left lower lung zone No pneumonia or pulmonary edema Minimal pleural disease Splenomegaly AP dimension 18 cm Liver lobular in contour no definite focal liver lesions Gallstones Esophageal varices Perigastric varices No pancreatic mass Aorta normal size 4 mm left renal calculus, Mild left hydronephrosis, 6 mm 5 mm proximal left ureteral calculi Large staghorn type right renal calculi occupying the right renal pelvis with additional calculi No bowel obstruction No bladder mass or bladder calculi Left hip hemiarthroplasty Prominent osteopenia IMPRESSION: No pneumonia or pulmonary edema. Cirrhosis Prominent splenomegaly Esophageal and perigastric varices Bilateral renal calculi including large staghorn calculi right renal pelvis Mild left hydronephrosis, 6 mm, 5 mm proximal left ureteral calculi
[2025-03-10 12:17] LABS: Sed Rate (ESR) 47 mm/hr (0-20)
[2025-03-10 12:19] LABS: Slide Review Platelets confirmed
[2025-03-10 12:35] LABS: Glucose Estimated Average 100 mg/dL (80-131); Hemoglobin A1C 5.1 % Hgb (4.8-6.0)
[2025-03-10] MEDS: cefTRIAXone/D5w 1gm IV premix 1 GM/50 ML BAG IV (12:58)
--- NOTE | 2025-03-10 14:41 | PC.CM ---
Addendum entered by Martin Zapata RN 03/10/25 16:45: 1638-Call to [facility], spoke with THAD Lee, provided clinical information and presented case, she will review and call back. Pending response at this time. Addendum entered by Martin Zapata RN 03/10/25 15:33: 1520- Received call from THAD Tello at [facility], Urologist Dr. Alvin Valentine declined patient for ER to ER transfer, stated patient can be followed as an outpatient after discharge. Informed Dr. Gupta, he requested we attempt to transfer patient to [facility] or [facility], transfer packet sent to both hospitals, pending review at this time. Addendum entered by Martin Zapata RN 03/10/25 14:48: 1448- Received call back from THAD Novak at [facility], they do not have urology services available today, patient was declined for transfer. Original Note: Transfer request received, patient needs urology services for a left ureteral calculi and hydronephrosis, packet sent to [facility] and [facility], imaging studies placed on CD.
--- NOTE | 2025-03-10 18:31 | PD.EDADDENDU ---
Emergency Room Addendum Addendum Narrative: 1800: Care assumed from Dr. Gupta (emergency physician). Past medical, surgical, social and family history reviewed. Vitals and home medications reviewed. Results and treatment plan discussed. I will assume the care of the patient at this time and will follow the patient, pending urology transfer. The following addendum documentation note is intended to reflect any pending information, findings, or radiology results not included in the patient?s initial chart by the previous shift [email or web address]. 18:40 - Patient transferred to [facility] by EMS.
--- NOTE | 2025-03-10 19:24 | PC.NURSE ---
CALLED [facility] AND GAVE REPORT TO JUMANA ONEIL
== END 2025-03-10 18:40 | disposition short-term general hospital (02) ==
PROVIDERS: Emergency Provider Emergency Medicine
DX: N13.6 Pyonephrosis (principal)
CPT/HCPCS: 36415; 51701; 70450; 71045; 71250; 74176; 80053; 80307; 80320; 80329; 81001; 82010; 82248; 83036; 83605; 83690; 83735; 84145; 84443; 84484; 85025; 85652; 86140; 87040; 87086; 87502; 87811; 93970; 96127; 96361; 96365; 99285; J0696; J7030; G0480

== ENCOUNTER 2025-03-15 22:31 | Inpatient (IN) | payer MEDICARE, OTHER, MEDICAID, SELFPAY ==
[2025-03-15 23:20] VITALS: BMI 27.7
[2025-03-15 23:30] VITALS: BP 122/63; PULSE 64; RESP 18; TEMP 36.8; O2SAT 93
[2025-03-16] VITALS (7 sets, daily range): BP systolic 109–129; BP diastolic 66–84; PULSE 53–82; RESP 15–18; TEMP 36.2–36.7; O2SAT 91–95; BMI 27.8; BMI 13.0
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
[2025-03-16 06:29] LABS: Basophils # (Auto) 0.0 Thou/mm3 (0.0-0.2); Basophils % (Auto) 0 % (0-2.5); Eosinophils # (Auto) 0.1 Thou/mm3 (0.0-0.5); Eosinophils % (Auto) 4 % (0-10); Hematocrit 36.3 % (41.0-53.0); Hemoglobin 12.4 g/dL (13.5-16.0); Immature Granulocytes Auto 0.01 Thou/mm3 (0.00-0.00); Lymphocytes # (Auto) 0.7 Thou/mm3 (1.0-4.8); Lymphocytes % (Auto) 26 % (10-50); Mean Corpuscular HGB Conc 34.2 g/dl (31.0-37.0); Mean Corpuscular Hemoglobin 32.9 pg (25.0-35.0); Mean Corpuscular Volume 96 fL (80-100); Monocytes # (Auto) 0.3 Thou/mm3 (0.0-0.8); Monocytes % (Auto) 12 % (0-12); Neutrophils # (Auto) 1.5 Thou/mm3 (1.8-7.7); Neutrophils % (Auto) 57 % (37-80); Nucleated Red Blood Cell # 0.00 Thou/mm3 (0.00-0.00); Nucleated Red Blood Cell % 0 /100 WBC (0); RDW Standard Deviation 49.0 fL (35.1-43.9); Red Blood Count 3.77 Miln/mm3 (4.50-5.90); White Blood Count 2.5 Thou/mm3 (3.8-10.6)
[2025-03-16 06:44] LABS: Platelet Count 59 Thou/mm3 (140-440)
[2025-03-16 07:01] LABS: Alanine Aminotransferase 13 U/L (10-49); Albumin, Serum 2.9 gm/dL (3.4-4.8); Albumin/Globulin Ratio 1.0 (1.2-2.2); Alkaline Phosphatase 144 U/L (46-116); Anion Gap 9 (7-16); Aspartate Amino Transferase 25 U/L (0-34); BUN/Creatinine Ratio 9 Ratio (12-20); Bilirubin,Total 1.1 mg/dL (0.3-1.2); Blood Urea Nitrogen 12 mg/dL (9-23); Calcium 8.2 mg/dL (8.3-10.6); Calcium (Corrected) 9.1 mg/dL (8.5-10.1); Carbon Dioxide 25.1 mMol/L (20.0-31.0); Chloride 106 mMol/L (98-107); Creatinine (Component) 1.3 mg/dL (0.6-1.3); Estimated Creatinine Clearance 61.3 mL/min (>60); Globulin 3.0 gm/dL (2.3-3.5); Glucose 101 mg/dL (74-106); Magnesium 1.8 mg/dL (1.6-2.6); Osmolality,Calculated 279 (275-295); Phosphorous 2.6 mg/dL (2.4-5.1); Potassium 4.0 mMol/L (3.4-5.1); Sodium 140 mMol/L (136-145); Total Protein 5.9 gm/dL (5.7-8.2); eGFR > 60 See Note
[2025-03-16 08:26] LABS: Slide Review Platelets confirmed
[2025-03-16] MEDS: ASCORBIC ACID 250 MG TABLET 500 MG PO (08:55)
[2025-03-16] MEDS: FERROUS SULF 325 MG TABLET PO (08:56)
[2025-03-16] MEDS: CHOLECALCIFEROL (Vitamin D3) 1,000 IU TABLET 1000 IU PO (08:56)
[2025-03-16] MEDS: PANTOPRAZOLE 40 MG TABLET PO (08:56)
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
--- NOTE | 2025-03-16 11:09 | PC.NURSE ---
call to pharmacy, I have no neomycin for this pt
[2025-03-16] MEDS: LACTULOSE SYRUP 20 GM/30 ML UDC 30 GM PO ×2 (12:18→20:26)
[2025-03-16] MEDS: NEOMYCIN SULFATE 500 MG TABLET PO ×2 (12:18→20:28)
--- NOTE | 2025-03-16 13:37 | PC.SS ---
SS attempted to contact [facility] YULISSA Soto [phone] Ext:[phone] Extension was not assigned. SS then called and was transferred to Caregiver Support ext:[phone] No answer, SS left brief message with call back information.
[2025-03-16] MEDS: HEPARIN SOD INJ 5000 UNIT/ML VIAL SC (13:43)
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
--- NOTE | 2025-03-16 14:48 | PC.SS ---
[facility] in [place] answered yes on [facility]ACC, SS contacted [facility] [phone] who stated they are a Assisted Living home payment ranges about $5600. Per [facility], [facility] has helped other patients before with payment, SS currently pending a call back from [facility] to get more information and to see if this will be an option for pt.
--- NOTE | 2025-03-16 14:57 | PC.SS ---
Nichelle from [facility] contacted that pt has called their facility demanding his cell phone. Nichelle brought in cell phone to SS office. Mint green Samsung phone with light blue and orange information technology technician. SS added to pt belonging and provided to pt at bedside. Miroslava WEAVER
--- NOTE | 2025-03-16 15:18 | PC.SS ---
SS spoke to Nichelle from [facility] who stated pt does have [facility] SOC $2022 #[id number]
--- NOTE | 2025-03-16 16:19 | ESPR_ITS ---
<Statement entered by Edith Queen MD - 03/30/25 07:52> I reviewed above note and agree with findings and plans. I have also personally examined the patient with medicine team and went over assessment and plan with medical team including quality intern and resident physician. <Statement entered by Maribeth Hernandez MD - 03/17/25 08:06> Patient was seen and examined by me personally. I have directly supervised and reviewed documentation by the team resident and agree with its findings with any exceptions or additional findings as below. Plan of care was discussed with the attending, Dr. Queen. Patient is a new transfer back from [facility]. He was originally transferred out obstructive renal stone and associated left-sided hydronephrosis s/p left ureteral stent placement. Now ready for discharge and SNF placement. Will follow up with social organization professor. Maribeth Hernandez, PGY-3 Documentation for date of: 03/16/25 Subjective Subjective Interval history: Patient is a 64-year-old male with PMH of Jimmy's disease complicated by cirrhosis, osteoporosis, BPH, and bedbound-status who was originally transferred out to [facility] for cystoscopy and left ureteral stent placement for obstructive renal stone with associated left-sided hydronephrosis and was transferred back overnight on 03/16/25 to [facility]. Patient was examined at bedside; they appear A&Ox3 and in NAD. Vitals/labs today significant for HR 53, WBC 2.5, Hgb 12.4, platelet count 59, creatinine 1.3. Physical exam notable for severe icthyosis and flaking of bilateral lower extremities with right foot internally rotated but otherwise benign. Patient is medically cleared and will be discharged pending SNF placement. Exam Vital Signs Temp Pulse Resp BP Pulse Ox O2 Del Method 97.1 F 64 16 109/84 95 Room Air 03/16/25 15:50 03/16/25 15:50 03/16/25 15:50 03/16/25 15:50 03/16/25 15:50 03/16/25 15:50 Narrative Exam General: AOx3, no acute distress, able to speak full sentences HEENT: NC/AT, mucous membranes moist, bilateral sclera anicteric Cardiovascular: regular rate and rhythm, S1/S2 present, no murmurs appreciated Pulmonary: clear to auscultation bilaterally, no rales/rhonchi/wheezes Abdominal: soft, non-tender, non-distended, no rebound/guarding, normal bowel sounds present Musculoskeletal: no peripheral edema, R foot internally rotated (chronic) Skin: warm and dry, intact, B/L lower ext dry and scaly Neuro: CN II-XII intact, no focal deficits Objective Labs 03/16/25 04:42 03/16/25 04:42 Labs: Laboratory Results - last 24 hr 03/16/25 04:42 WBC 2.5 L RBC 3.77 L Hgb 12.4 L Hct 36.3 L MCV 96 MCH 32.9 MCHC 34.2 RDW Std Deviation 49.0 H Plt Count 59 L Neut % (Auto) 57 Lymph % (Auto) 26 Rowan % (Auto) 12 Eos % (Auto) 4 Baso % (Auto) 0 Neut # (Auto) 1.5 L Lymph # (Auto) 0.7 L Rowan # (Auto) 0.3 Eos # (Auto) 0.1 Baso # (Auto) 0.0 Immature Gran # (Auto) 0.01 H Absolute Nucleated RBC 0.00 Immature Gran % 0 Nucleated RBC % 0 Sodium 140 Potassium 4.0 Chloride 106 Carbon Dioxide 25.1 Anion Gap 9 BUN 12 Creatinine 1.3 Estim Creat Clear Calc 61.3 eGFR > 60 BUN/Creatinine Ratio 9 L Glucose 101 Calculated Osmolality 279 Calcium 8.2 L Corrected Calcium 9.1 Phosphorus 2.6 Magnesium 1.8 Total Bilirubin 1.1 AST 25 ALT 13 Alkaline Phosphatase 144 H Total Protein 5.9 Albumin 2.9 L Globulin 3.0 Albumin/Globulin Ratio 1.0 L Misc Test Result Platelets confirmed Quality Measures Quality Measures VTE prophylaxis Advance care planning discussed with:: patient Assessment & Plan Assessment Current Active Medications: Generic Name Dose Route Start Last Admin Trade Name Freq PRN Reason Stop Dose Admin Acetaminophen 650 mg 03/16/25 00:15 Acetaminophen 325 Mg Tablet PO 04/15/25 00:14 Q6H PRN PAIN 1- 3 OR FEVER > 101 Ascorbic Acid 500 mg 03/16/25 09:00 03/16/25 08:55 Ascorbic Acid 250 Mg Tablet PO 04/15/25 08:59 500 mg QDAY JERAD Administration Ferrous Sulfate 325 mg 03/16/25 09:00 03/16/25 08:56 Ferrous Sulf 325 Mg Tablet PO 04/15/25 08:59 325 mg QDAY JERAD Administration Heparin Sodium (Porcine) 5,000 unit 03/16/25 06:00 03/16/25 13:43 Heparin Sod Inj 5000 Unit/Ml Vial SC 03/30/25 05:59 5,000 unit Q8HR JERAD Administration Lactulose 30 gm 03/16/25 12:00 03/16/25 12:18 Lactulose Syrup 20 Gm/30 Ml Udc PO 04/15/25 11:59 30 gm QID JERAD Administration Melatonin 3 mg 03/16/25 00:22 Melatonin 3 Mg Tablet PO 04/15/25 00:21 HS PRN for supplement Neomycin Sulfate 500 mg 03/16/25 09:00 03/16/25 12:18 Neomycin Sulfate 500 Mg Tablet PO 03/23/25 08:59 500 mg BID [facility] Administration Non-Formulary Medication 1 tab 03/16/25 09:00 [id number] [Multivitamin 50 Plus] PO 04/15/25 08:59 QDAY [facility] Non-Formulary Medication 50 mg 03/16/25 09:00 Zinc Acetate PO 04/15/25 08:59 BID [facility] Non-Formulary Medication 150 mg 03/16/25 09:00 Ibandronate PO 04/15/25 08:59 QDAY [facility] Ondansetron HCl 4 mg 03/16/25 00:15 Ondansetron Inj 2 Mg/Ml Inj 2 Ml IVP 04/15/25 00:14 Q6H PRN NAUSEA OR VOMITING Protocol Pantoprazole Sodium 40 mg 03/16/25 09:00 03/16/25 08:56 Pantoprazole 40 Mg Tablet PO 04/15/25 08:59 40 mg QDAY [facility] Administration Sennosides 1 tab 03/16/25 09:00 03/16/25 08:56 Senna Tablet PO 04/15/25 08:59 1 tab QDAY [facility] Administration Protocol Spironolactone 37.5 mg 03/16/25 21:00 Spironolactone 25 Mg Tablet PO 04/15/25 20:59 HS [facility] Tamsulosin HCl 0.4 mg 03/16/25 21:00 Tamsulosin Hcl 0.4 Mg Capsule PO 04/15/25 20:59 HS [facility] Vitamin D 1,000 iu 03/16/25 09:00 03/16/25 08:56 Cholecalciferol (Vitamin D3) 1,000 Iu Tablet PO 04/15/25 08:59 1,000 iu QDAY JERAD Administration Plan 64-year-old male with 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 He was transferred from [facility] to [facility] on 03/10 for evaluation of left flank pain, with imaging revealing an obstructive renal stone and associated left-sided hydronephrosis. Patient transferred back for requiring new SNF. #Left Hydronephrosis with urinary obstruction due to renal calculus #S/P Left ureteral stent placement #BPH Patient found to have right staghorn calculus with 2 left ureteral stone with mild upstream hydronephrosis status post left ureteral stent placement Plan ? Continue with indwelling Smith ? Urology follow-up in 2 weeks after discharge for void trial ? Resumed home Tamsulosin #Cirrhosis of liver #Jimmy's disease History of Jimmy disease associated cirrhosis with pancytopenia, not acutely decompensated Plan ? Monitor LFTs ? Resumed spironolactone, Neomycin (lower ammonia level), and lactulose #Pancytopenia Chronic pancytopenia likely 2/2 to liver disease No concerns for acute infection Plan ? Monitor CBC #Osteoporosis ? Resumed home Ibandronate Health Maintenance: Diet: cardiac GI prophylaxis: none DVT prophylaxis: heparin 5000u q8h Antibiotics: none CODE STATUS: FULL Disposition: [facility] Case discussed with my attending Dr. Queen, and senior resident, Dr. David Galindo, DO PGY-1
[2025-03-16] MEDS: TAMSULOSIN HCL 0.4 MG CAPSULE PO (20:26)
[2025-03-16] MEDS: SPIRONOLACTONE 25 MG TABLET 37.5 MG PO (20:26)
[2025-03-16] MEDS: MELATONIN 3 MG TABLET PO (22:57)
[2025-03-17 04:00] VITALS: BP 115/64; PULSE 72; RESP 19; TEMP 36.1; O2SAT 94
[2025-03-17 06:07] LABS: Basophils # (Auto) 0.0 Thou/mm3 (0.0-0.2); Basophils % (Auto) 1 % (0-2.5); Eosinophils # (Auto) 0.1 Thou/mm3 (0.0-0.5); Eosinophils % (Auto) 4 % (0-10); Hematocrit 36.0 % (41.0-53.0); Hemoglobin 12.4 g/dL (13.5-16.0); Immature Granulocytes Auto 0.00 Thou/mm3 (0.00-0.00); Lymphocytes # (Auto) 0.6 Thou/mm3 (1.0-4.8); Lymphocytes % (Auto) 26 % (10-50); Mean Corpuscular HGB Conc 34.4 g/dl (31.0-37.0); Mean Corpuscular Hemoglobin 32.7 pg (25.0-35.0); Mean Corpuscular Volume 95 fL (80-100); Monocytes # (Auto) 0.2 Thou/mm3 (0.0-0.8); Monocytes % (Auto) 10 % (0-12); Neutrophils # (Auto) 1.3 Thou/mm3 (1.8-7.7); Neutrophils % (Auto) 59 % (37-80); Nucleated Red Blood Cell # 0.00 Thou/mm3 (0.00-0.00); Nucleated Red Blood Cell % 0 /100 WBC (0); RDW Standard Deviation 48.4 fL (35.1-43.9); Red Blood Count 3.79 Miln/mm3 (4.50-5.90); White Blood Count 2.2 Thou/mm3 (3.8-10.6)
[2025-03-17 06:14] LABS: Platelet Count 62 Thou/mm3 (140-440)
[2025-03-17 06:25] LABS: Alanine Aminotransferase 18 U/L (10-49); Albumin, Serum 3.1 gm/dL (3.4-4.8); Albumin/Globulin Ratio 1.0 (1.2-2.2); Alkaline Phosphatase 164 U/L (46-116); Anion Gap 7 (7-16); Aspartate Amino Transferase 33 U/L (0-34); BUN/Creatinine Ratio 12 Ratio (12-20); Bilirubin,Total 1.1 mg/dL (0.3-1.2); Blood Urea Nitrogen 15 mg/dL (9-23); Calcium 8.4 mg/dL (8.3-10.6); Calcium (Corrected) 9.1 mg/dL (8.5-10.1); Carbon Dioxide 25.9 mMol/L (20.0-31.0); Chloride 106 mMol/L (98-107); Creatinine (Component) 1.3 mg/dL (0.6-1.3); Estimated Creatinine Clearance 60.2 mL/min (>60); Globulin 3.2 gm/dL (2.3-3.5); Glucose 106 mg/dL (74-106); Osmolality,Calculated 278 (275-295); Potassium 4.2 mMol/L (3.4-5.1); Sodium 139 mMol/L (136-145); Total Protein 6.3 gm/dL (5.7-8.2); eGFR > 60 See Note
[2025-03-17 07:32] VITALS: BP 112/64; PULSE 65; RESP 18; TEMP 36.3; O2SAT 94
[2025-03-17] MEDS: ASCORBIC ACID 250 MG TABLET 500 MG PO (07:55)
[2025-03-17] MEDS: FERROUS SULF 325 MG TABLET PO (07:55)
[2025-03-17] MEDS: CHOLECALCIFEROL (Vitamin D3) 1,000 IU TABLET 1000 IU PO (07:55)
[2025-03-17] MEDS: NEOMYCIN SULFATE 500 MG TABLET PO ×2 (07:56→21:18)
[2025-03-17] MEDS: PANTOPRAZOLE 40 MG TABLET PO (07:56)
[2025-03-17 08:41] LABS: Slide Review Platelets confirmed
[2025-03-17] MEDS: LACTULOSE SYRUP 20 GM/30 ML UDC 30 GM PO ×2 (11:28→21:17)
[2025-03-17 12:00] VITALS: BP 96/73; PULSE 80; RESP 18; TEMP 36.3; O2SAT 94
--- NOTE | 2025-03-17 13:33 | PD.RESDS ---
Planned Discharge Date 03/17/25 DS: Providers Provider Date of admission: 03/15/25 22:31 Primary care physician: Darrel Linares DO Admitting Provider: Darrel Linares DO Attending Provider on Admission: Edith Queen MD Consults: 03/16/25 00:23 Referral Wound Care Routine Comment: 03/16/25 00:48 Referral Physical Therapy Routine Comment: Physician Instructions: Referral Registered Dietitian Routine Comment: Attending Provider on DC: Edith Queen MD Discharging Provider: Edwin Galindo DO DS: Diagnosis Problem List Completed Was Problem List Reviewed/Reconciled?: Yes Hospital Course Hospital Course Hospital course: Summary: Patient is a 64-year-old male with 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 Hospital: During patient's hospital course, Patient is safe to discharge. Further discharge instructions below. # # # Status at Discharge Cognitive/Behavioral Status at Discharge: stable Functional Status at Discharge: independent ambulation Overall Status at Discharge: patient is back to baseline Patient's care plan was discussed with my attending, Dr. Queen, and senior resident, Dr. Hernandez. Edwin Galindo DO Internal Medicine, PGY-1 Time Spent with Patient Time attestation: Total time spent providing and/or coordinating discharge services: Time spent: Greater than 30 minutes Exam Vital Signs Temp Pulse Resp BP Pulse Ox O2 Del Method 97.3 F 80 18 96/73 94 L Room Air 03/17/25 12:00 03/17/25 12:00 03/17/25 12:00 03/17/25 12:00 03/17/25 12:00 03/17/25 12:00 Narrative Exam General: AOx3, no acute distress, able to speak full sentences HEENT: NC/AT, mucous membranes moist, bilateral sclera anicteric Cardiovascular: regular rate and rhythm, S1/S2 present, no murmurs appreciated Pulmonary: clear to auscultation bilaterally, no rales/rhonchi/wheezes Abdominal: soft, non-tender, non-distended, no rebound/guarding, normal bowel sounds present Musculoskeletal: no peripheral edema, R foot internally rotated (chronic) Skin: warm and dry, intact, B/L lower ext dry and scaly Neuro: CN II-XII intact, no focal deficits Discharge Plan Prescriptions/Referrals Prescriptions/Med Rec: No Action spironolactone 25 mg Tablet 37.5 mg PO HS ascorbic acid (vitamin C) [Vitamin C] 500 mg Tablet 500 mg PO QDAY pantoprazole 40 mg Tablet,Delayed Release (Dr/Ec) 40 mg PO QDAY cholecalciferol (vitamin D3) [Vitamin D3] 25 mcg (1,000 unit) Tablet 50 mcg PO QDAY lactulose 20 gram/30 mL Solution 30 g PO QID melatonin 3 mg Tablet 3 mg PO HS PRN (Reason: for supplement) zinc acetate 50 mg (zinc) Capsule 50 mg PO BID Multivitamin 50 Plus Tablet 1 tab PO QDAY Qty: 30 0RF tamsulosin 0.4 mg capsule 0.4 mg PO HS Patient Comments: TAKE 1 CAPSULE BY MOUTH DAILY FOR 14 DAYS. neomycin 500 mg tablet 500 mg PO BID ibandronate 150 mg tablet 150 mg PO QDAY ferrous sulfate [Lawanda-Time] 325 mg (65 mg iron) tablet 325 mg PO QDAY Referrals: Darrel Linares DO [Primary Care Provider, Internal Medicine] Patient/Caregiver Discharge Instructions Print Language: Surinamese Discharge Order Discharge Orders: Discharge (Routine); Ordered 03/16/25 Ordered By: Alexander Massey Quality Discharge Quality Measures VTE prophylaxis
--- NOTE | 2025-03-17 14:31 | PC.SS ---
Addendum entered and electronically signed by ZEN Barrow 03/20/25 15:14: FRONT DESK COORDINATOR met with [facility] staff, Roberto Carlos Shabazz; to provide overview on submittal of [facility] report. [facility] inquired if mental health evaluation had been completed on the patient due 5150 DTO. FRONT DESK COORDINATOR notifed [facility] staff that patient was transferred to [facility] for HLOC. Care Sole Dyer joined discussion and informed [facility] staff that documentation of mental health clearance from [facility] in patient's physical chart. [facility] provided confirmation that patient had been evaluated for 5150 by [facility] staff prior to return to [facility]. Original Note: FRONT DESK COORDINATOR fielded phone call from [facility] staff, Roberto Carlos Shabazz . FRONT DESK COORDINATOR informed that [facility] staff will conduct site visit with [facility] on Thursday. FRONT DESK COORDINATOR confirmed that patient is not receiving sedation, restraint free and absent of 1:1 sitter. FRONT DESK COORDINATOR relayed that bedside nurse today reported that patient became argumentive but was able to be verbally re-directed. [facility] staff requesting update with patient's discharge disposition.
--- NOTE | 2025-03-17 15:41 | ESPR_ITS ---
<Statement entered by Edith Queen MD - 03/30/25 07:57> I reviewed above note and agree with findings and plans. I have also personally examined the patient with medicine team and went over assessment and plan with medical team including music intern and resident physician. <Statement entered by Maribeth Hernandez MD - 03/18/25 07:27> Patient was seen and examined by me personally. I have directly supervised and reviewed documentation by the team resident and agree with its findings with any exceptions or additional findings as below. Plan of care was discussed with the attending, Dr. Queen. Patient is still pending SNF placement, medically cleared. manager administrative services continuing to work on facility search. Maribeth Hernandez, PGY-3 Documentation for date of: 03/17/25 Subjective Subjective Interval history: No overnight events. Patient was examined at bedside; they appear A&Ox3 and in NAD. Vitals/labs today significant for WBC 2.2, Hgb 12.4, platelet count 59->62, ALP 164. Physical exam was benign and unremarkable. Patient is medically cleared and will be discharged pending SNF placement. Exam Vital Signs Temp Pulse Resp BP Pulse Ox O2 Del Method 97.3 F 80 18 96/73 94 L Room Air 03/17/25 12:00 03/17/25 12:00 03/17/25 12:00 03/17/25 12:00 03/17/25 12:00 03/17/25 12:00 Narrative Exam General: AOx3, no acute distress, able to speak full sentences HEENT: NC/AT, mucous membranes moist, bilateral sclera anicteric Cardiovascular: regular rate and rhythm, S1/S2 present, no murmurs appreciated Pulmonary: clear to auscultation bilaterally, no rales/rhonchi/wheezes Abdominal: soft, non-tender, non-distended, no rebound/guarding, normal bowel sounds present Musculoskeletal: no peripheral edema, R foot internally rotated (chronic) Skin: warm and dry, intact, B/L lower ext dry and scaly Neuro: CN II-XII intact, no focal deficits Objective Labs 03/17/25 05:39 03/17/25 05:39 Labs: Laboratory Results - last 24 hr 03/17/25 05:39 WBC 2.2 L RBC 3.79 L Hgb 12.4 L Hct 36.0 L MCV 95 MCH 32.7 MCHC 34.4 RDW Std Deviation 48.4 H Plt Count 62 L Neut % (Auto) 59 Lymph % (Auto) 26 Cameron % (Auto) 10 Eos % (Auto) 4 Baso % (Auto) 1 Neut # (Auto) 1.3 L Lymph # (Auto) 0.6 L Cameron # (Auto) 0.2 Eos # (Auto) 0.1 Baso # (Auto) 0.0 Immature Gran # (Auto) 0.00 Absolute Nucleated RBC 0.00 Immature Gran % 0 Nucleated RBC % 0 Sodium 139 Potassium 4.2 Chloride 106 Carbon Dioxide 25.9 Anion Gap 7 BUN 15 Creatinine 1.3 Estim Creat Clear Calc 60.2 L eGFR > 60 BUN/Creatinine Ratio 12 Glucose 106 Calculated Osmolality 278 Calcium 8.4 Corrected Calcium 9.1 Total Bilirubin 1.1 AST 33 ALT 18 Alkaline Phosphatase 164 H D Total Protein 6.3 Albumin 3.1 L Globulin 3.2 Albumin/Globulin Ratio 1.0 L Misc Test Result Platelets confirmed Quality Measures Quality Measures VTE prophylaxis Advance care planning discussed with:: patient Assessment & Plan Assessment Current Active Medications: Generic Name Dose Route Start Last Admin Trade Name Freq PRN Reason Stop Dose Admin Acetaminophen 650 mg 03/16/25 00:15 Acetaminophen 325 Mg Tablet PO 04/15/25 00:14 Q6H PRN PAIN 1- 3 OR FEVER > 101 Ascorbic Acid 500 mg 03/16/25 09:00 03/17/25 07:55 Ascorbic Acid 250 Mg Tablet PO 04/15/25 08:59 500 mg QDAY JERAD Administration Ferrous Sulfate 325 mg 03/16/25 09:00 03/17/25 07:55 Ferrous Sulf 325 Mg Tablet PO 04/15/25 08:59 325 mg QDAY JERAD Administration Heparin Sodium (Porcine) 5,000 unit 03/16/25 06:00 03/17/25 13:34 Heparin Sod Inj 5000 Unit/Ml Vial SC 03/30/25 05:59 Not Given Q8HR JERAD Lactulose 30 gm 03/16/25 12:00 03/17/25 11:28 Lactulose Syrup 20 Gm/30 Ml Udc PO 04/15/25 11:59 30 gm QID JERAD Administration Melatonin 3 mg 03/16/25 00:22 03/16/25 22:57 Melatonin 3 Mg Tablet PO 04/15/25 00:21 3 mg HS PRN Administration for supplement Neomycin Sulfate 500 mg 03/16/25 09:00 03/17/25 07:56 Neomycin Sulfate 500 Mg Tablet PO 03/23/25 08:59 500 mg BID JERAD Administration Non-Formulary Medication 1 tab 03/16/25 09:00 [id number] [Multivitamin 50 Plus] PO 04/15/25 08:59 QDAY JERAD Non-Formulary Medication 50 mg 03/16/25 09:00 Zinc Acetate PO 04/15/25 08:59 BID JERAD Non-Formulary Medication 150 mg 03/16/25 09:00 Ibandronate PO 04/15/25 08:59 QDAY JERAD Ondansetron HCl 4 mg 03/16/25 00:15 Ondansetron Inj 2 Mg/Ml Inj 2 Ml IVP 04/15/25 00:14 Q6H PRN NAUSEA OR VOMITING Protocol Pantoprazole Sodium 40 mg 03/16/25 09:00 03/17/25 07:56 Pantoprazole 40 Mg Tablet PO 04/15/25 08:59 40 mg QDAY JERAD Administration Sennosides 1 tab 03/16/25 09:00 03/17/25 07:55 Senna Tablet PO 04/15/25 08:59 1 tab QDAY JERAD Administration Protocol Spironolactone 37.5 mg 03/16/25 21:00 03/16/25 20:26 Spironolactone 25 Mg Tablet PO 04/15/25 20:59 37.5 mg HS JERAD Administration Tamsulosin HCl 0.4 mg 03/16/25 21:00 03/16/25 20:26 Tamsulosin Hcl 0.4 Mg Capsule PO 04/15/25 20:59 0.4 mg HS JERAD Administration Vitamin D 1,000 iu 03/16/25 09:00 03/17/25 07:55 Cholecalciferol (Vitamin D3) 1,000 Iu Tablet PO 04/15/25 08:59 1,000 iu QDAY JERAD Administration Plan 64-year-old male with 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 He was transferred from [place] to [facility] on 03/10 for evaluation of left flank pain, with imaging revealing an obstructive renal stone and associated left-sided hydronephrosis. Patient transferred back for requiring new SNF. #Left Hydronephrosis with urinary obstruction due to renal calculus #S/P Left ureteral stent placement #BPH Patient found to have right staghorn calculus with 2 left ureteral stone with mild upstream hydronephrosis status post left ureteral stent placement Plan ? Continue with indwelling Smith ? Urology follow-up in 2 weeks after discharge for void trial ? Resumed home Tamsulosin #Cirrhosis of liver #Jimmy's disease History of Jimmy disease associated cirrhosis with pancytopenia, not acutely decompensated Plan -Monitor LFTs -Continue spironolactone, Neomycin (lower ammonia level), and lactulose -Zinc supplementation #Pancytopenia Chronic pancytopenia likely 2/2 to liver disease No concerns for acute infection Plan ? Monitor CBC #Osteoporosis Rx: -Resumed home Ibandronate Health Maintenance: Diet: cardiac GI prophylaxis: none DVT prophylaxis: heparin 5000u q8h Antibiotics: none CODE STATUS: FULL Disposition: Medr Case discussed with my attending Dr. Queen, and senior resident, Dr. David Galindo, DO PGY-1
--- NOTE | 2025-03-17 15:46 | PC.SS ---
RIGGING ENGINEER conducted phone contact with [facility]. Facility to initiate [facility] application on behalf of the patient once patient's mother Karrie Wang confirms discharge plan. RIGGING ENGINEER contacted patient's mother and informed of need to answer phone call from [facility] staff member, Anusha Cavazos . Patient's mother confirmed that she will field phone call. Patient's mother in favor of patient transitioning to [facility].
[2025-03-17 16:00] VITALS: BP 113/72; PULSE 86; RESP 18; TEMP 36.3; O2SAT 94
--- NOTE | 2025-03-17 16:15 | PC.NURSE ---
Pt requesting anxiety medicine, notified, new orders placed.
[2025-03-17 20:00] VITALS: BP 110/62; PULSE 85; RESP 18; TEMP 36.8; O2SAT 94
[2025-03-17 21:18] VITALS: BP 110/62; PULSE 85
[2025-03-17] MEDS: HEPARIN SOD INJ 5000 UNIT/ML VIAL SC (21:18)
[2025-03-17] MEDS: TAMSULOSIN HCL 0.4 MG CAPSULE PO (21:18)
[2025-03-17] MEDS: SPIRONOLACTONE 25 MG TABLET 37.5 MG PO (21:18)
[2025-03-17] MEDS: ACETAMINOPHEN 325 MG TABLET 650 MG PO (21:49)
[2025-03-18] VITALS: BP 117/66; PULSE 79; RESP 17; TEMP 36.7; O2SAT 94
[2025-03-18 04:00] VITALS: BP 115/70; PULSE 75; RESP 17; TEMP 36.9; O2SAT 94
[2025-03-18] MEDS: LACTULOSE SYRUP 20 GM/30 ML UDC 30 GM PO ×2 (05:57→20:23)
[2025-03-18 06:15] LABS: Basophils # (Auto) 0.0 Thou/mm3 (0.0-0.2); Basophils % (Auto) 0 % (0-2.5); Eosinophils # (Auto) 0.1 Thou/mm3 (0.0-0.5); Eosinophils % (Auto) 4 % (0-10); Hematocrit 36.1 % (41.0-53.0); Hemoglobin 12.4 g/dL (13.5-16.0); Immature Granulocytes Auto 0.01 Thou/mm3 (0.00-0.00); Lymphocytes # (Auto) 0.8 Thou/mm3 (1.0-4.8); Lymphocytes % (Auto) 34 % (10-50); Mean Corpuscular HGB Conc 34.3 g/dl (31.0-37.0); Mean Corpuscular Hemoglobin 32.7 pg (25.0-35.0); Mean Corpuscular Volume 95 fL (80-100); Monocytes # (Auto) 0.2 Thou/mm3 (0.0-0.8); Monocytes % (Auto) 10 % (0-12); Neutrophils # (Auto) 1.3 Thou/mm3 (1.8-7.7); Neutrophils % (Auto) 52 % (37-80); Nucleated Red Blood Cell # 0.00 Thou/mm3 (0.00-0.00); Nucleated Red Blood Cell % 0 /100 WBC (0); RDW Standard Deviation 49.3 fL (35.1-43.9); Red Blood Count 3.79 Miln/mm3 (4.50-5.90); White Blood Count 2.4 Thou/mm3 (3.8-10.6)
[2025-03-18 06:16] LABS: Platelet Count 61 Thou/mm3 (140-440)
[2025-03-18 06:24] LABS: Slide Review Platelets confirmed
[2025-03-18 06:40] LABS: Alanine Aminotransferase 18 U/L (10-49); Albumin, Serum 3.1 gm/dL (3.4-4.8); Albumin/Globulin Ratio 1.0 (1.2-2.2); Alkaline Phosphatase 161 U/L (46-116); Anion Gap 6 (7-16); Aspartate Amino Transferase 32 U/L (0-34); BUN/Creatinine Ratio 12 Ratio (12-20); Bilirubin,Total 0.9 mg/dL (0.3-1.2); Blood Urea Nitrogen 15 mg/dL (9-23); Calcium 8.8 mg/dL (8.3-10.6); Calcium (Corrected) 9.5 mg/dL (8.5-10.1); Carbon Dioxide 27.2 mMol/L (20.0-31.0); Chloride 107 mMol/L (98-107); Creatinine (Component) 1.3 mg/dL (0.6-1.3); Estimated Creatinine Clearance 60.2 mL/min (>60); Globulin 3.0 gm/dL (2.3-3.5); Glucose 101 mg/dL (74-106); Osmolality,Calculated 280 (275-295); Potassium 4.2 mMol/L (3.4-5.1); Sodium 140 mMol/L (136-145); Total Protein 6.1 gm/dL (5.7-8.2); eGFR > 60 See Note
[2025-03-18 08:00] VITALS: BP 114/70; PULSE 83; RESP 17; TEMP 36.3; O2SAT 93
[2025-03-18] MEDS: ASCORBIC ACID 250 MG TABLET 500 MG PO (08:00)
[2025-03-18] MEDS: PANTOPRAZOLE 40 MG TABLET PO (08:00)
[2025-03-18] MEDS: CHOLECALCIFEROL (Vitamin D3) 1,000 IU TABLET 1000 IU PO (08:00)
[2025-03-18] MEDS: NEOMYCIN SULFATE 500 MG TABLET PO ×2 (08:00→20:22)
[2025-03-18] MEDS: MULTIVITAMINS TABLET 1 TAB PO (08:01)
[2025-03-18] MEDS: FERROUS SULF 325 MG TABLET PO (08:01)
--- NOTE | 2025-03-18 15:36 | ESPR_ITS ---
<Statement entered by Edith Queen MD - 03/30/25 07:58> I reviewed above note and agree with findings and plans. I have also personally examined the patient with medicine team and went over assessment and plan with medical team including underwriting intern and resident physician. Documentation for date of: 03/18/25 Subjective Subjective Interval history: Patient is seen and examined at bedside. No acute overnight events. Denies any other new complaints. Patient needed to be on [facility] to be accepted for with [facility]. Family started application and following up on that. Will discharge once patient is accepted into that [facility] Exam Vital Signs Temp Pulse Resp BP Pulse Ox O2 Del Method 97.3 F 83 17 114/70 93 L Room Air 03/18/25 08:00 03/18/25 08:00 03/18/25 08:00 03/18/25 08:00 03/18/25 08:00 03/18/25 08:00 Narrative Exam General: AOx3, no acute distress, able to speak full sentences HEENT: NC/AT, mucous membranes moist, bilateral sclera anicteric Cardiovascular: regular rate and rhythm, S1/S2 present, no murmurs appreciated Pulmonary: clear to auscultation bilaterally, no rales/rhonchi/wheezes Abdominal: soft, non-tender, non-distended, no rebound/guarding, normal bowel sounds present Musculoskeletal: no peripheral edema, R foot internally rotated (chronic) Skin: warm and dry, intact, B/L lower ext dry and scaly Neuro: CN II-XII intact, no focal deficits Objective Labs 03/18/25 05:52 03/18/25 05:52 Labs: Laboratory Results - last 24 hr 03/18/25 05:52 WBC 2.4 L RBC 3.79 L Hgb 12.4 L Hct 36.1 L MCV 95 MCH 32.7 MCHC 34.3 RDW Std Deviation 49.3 H Plt Count 61 L Neut % (Auto) 52 Lymph % (Auto) 34 Stearns % (Auto) 10 Eos % (Auto) 4 Baso % (Auto) 0 Neut # (Auto) 1.3 L Lymph # (Auto) 0.8 L Stearns # (Auto) 0.2 Eos # (Auto) 0.1 Baso # (Auto) 0.0 Immature Gran # (Auto) 0.01 H Absolute Nucleated RBC 0.00 Immature Gran % 0 Nucleated RBC % 0 Sodium 140 Potassium 4.2 Chloride 107 Carbon Dioxide 27.2 Anion Gap 6 L BUN 15 Creatinine 1.3 Estim Creat Clear Calc 60.2 L eGFR > 60 BUN/Creatinine Ratio 12 Glucose 101 Calculated Osmolality 280 Calcium 8.8 Corrected Calcium 9.5 Total Bilirubin 0.9 AST 32 ALT 18 Alkaline Phosphatase 161 H Total Protein 6.1 Albumin 3.1 L Globulin 3.0 Albumin/Globulin Ratio 1.0 L Misc Test Result Platelets confirmed Quality Measures Quality Measures VTE prophylaxis Advance care planning discussed with:: patient Assessment & Plan Assessment Current Active Medications: Generic Name Dose Route Start Last Admin Trade Name Freq PRN Reason Stop Dose Admin Acetaminophen 650 mg 03/16/25 00:15 03/17/25 21:49 Acetaminophen 325 Mg Tablet PO 04/15/25 00:14 650 mg Q6H PRN Administration PAIN 1- 3 OR FEVER > 101 Alprazolam 0.25 mg 03/17/25 16:09 03/17/25 16:18 Alprazolam 0.25 Mg Tablet PO 03/22/25 16:08 0.25 mg TID PRN Administration ANXIETY Ascorbic Acid 500 mg 03/16/25 09:00 03/18/25 08:00 Ascorbic Acid 250 Mg Tablet PO 04/15/25 08:59 500 mg QDAY JERAD Administration Ferrous Sulfate 325 mg 03/16/25 09:00 03/18/25 08:01 Ferrous Sulf 325 Mg Tablet PO 04/15/25 08:59 325 mg QDAY JERAD Administration Heparin Sodium (Porcine) 5,000 unit 03/16/25 06:00 03/18/25 13:30 Heparin Sod Inj 5000 Unit/Ml Vial SC 03/30/25 05:59 Not Given Q8HR JERAD Lactulose 30 gm 03/16/25 12:00 03/18/25 12:42 Lactulose Syrup 20 Gm/30 Ml Udc PO 04/15/25 11:59 Not Given QID JERAD Melatonin 3 mg 03/16/25 00:22 03/16/25 22:57 Melatonin 3 Mg Tablet PO 04/15/25 00:21 3 mg HS PRN Administration for supplement Multivitamins 1 tab 03/16/25 09:00 03/18/25 08:01 Multivitamins Tablet PO 04/15/25 08:59 1 tab QDAY JERAD Administration Neomycin Sulfate 500 mg 03/16/25 09:00 03/18/25 08:00 Neomycin Sulfate 500 Mg Tablet PO 03/23/25 08:59 500 mg BID JERAD Administration Non-Formulary Medication 50 mg 03/16/25 09:00 Zinc Acetate PO 04/15/25 08:59 BID JERAD Non-Formulary Medication 150 mg 03/16/25 09:00 Ibandronate PO 04/15/25 08:59 QDAY JERAD Ondansetron HCl 4 mg 03/16/25 00:15 Ondansetron Inj 2 Mg/Ml Inj 2 Ml IVP 04/15/25 00:14 Q6H PRN NAUSEA OR VOMITING Protocol Pantoprazole Sodium 40 mg 03/16/25 09:00 03/18/25 08:00 Pantoprazole 40 Mg Tablet PO 04/15/25 08:59 40 mg QDAY JERAD Administration Sennosides 1 tab 03/16/25 09:00 03/18/25 08:01 Senna Tablet PO 04/15/25 08:59 1 tab QDAY JERAD Administration Protocol Spironolactone 37.5 mg 03/16/25 21:00 03/17/25 21:18 Spironolactone 25 Mg Tablet PO 04/15/25 20:59 37.5 mg HS JERAD Administration Tamsulosin HCl 0.4 mg 03/16/25 21:00 03/17/25 21:18 Tamsulosin Hcl 0.4 Mg Capsule PO 04/15/25 20:59 0.4 mg HS JERAD Administration Vitamin D 1,000 iu 03/16/25 09:00 03/18/25 08:00 Cholecalciferol (Vitamin D3) 1,000 Iu Tablet PO 04/15/25 08:59 1,000 iu QDAY JERAD Administration Plan 64-year-old male with 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 He was transferred from [place] to [facility] on 03/10 for evaluation of left flank pain, with imaging revealing an obstructive renal stone and associated left-sided hydronephrosis. Patient transferred back for requiring new SNF. #Left Hydronephrosis with urinary obstruction due to renal calculus #S/P Left ureteral stent placement #BPH Patient found to have right staghorn calculus with 2 left ureteral stone with mild upstream hydronephrosis status post left ureteral stent placement Plan ? Continue with indwelling Smith ? Urology follow-up in 2 weeks after discharge for void trial ? Resumed home Tamsulosin #Cirrhosis of liver #Jimmy's disease History of Jimmy disease associated cirrhosis with pancytopenia, not acutely decompensated Plan -Monitor LFTs -Continue spironolactone, Neomycin (lower ammonia level), and lactulose -Zinc supplementation #Pancytopenia Chronic pancytopenia likely 2/2 to liver disease No concerns for acute infection Plan ? Monitor CBC - B12, folate are ordered #Osteoporosis Rx: -Resumed home Ibandronate Health Maintenance: Diet: cardiac GI prophylaxis: none DVT prophylaxis: heparin 5000u q8h Antibiotics: none CODE STATUS: FULL Disposition: [facility] Patient plan of care was discussed with the attending physician, Dr. Bernice Massey, PGY2
[2025-03-18 15:50] VITALS: BP 118/64; PULSE 73; RESP 18; TEMP 36.4; O2SAT 92
[2025-03-18 20:00] VITALS: BP 136/75; PULSE 87; RESP 17; TEMP 36.4; O2SAT 94
[2025-03-18 20:22] VITALS: BP 136/75; PULSE 87
[2025-03-18] MEDS: SPIRONOLACTONE 25 MG TABLET 37.5 MG PO (20:22)
[2025-03-18] MEDS: TAMSULOSIN HCL 0.4 MG CAPSULE PO (20:22)
[2025-03-18] MEDS: ACETAMINOPHEN 325 MG TABLET 650 MG PO (20:22)
[2025-03-18] MEDS: MELATONIN 3 MG TABLET PO (22:58)
[2025-03-19] VITALS (7 sets, daily range): BP systolic 114–148; BP diastolic 55–91; PULSE 63–79; RESP 16–20; TEMP 36.1–36.9; O2SAT 94–96
[2025-03-19 05:16] LABS: Basophils # (Auto) 0.0 Thou/mm3 (0.0-0.2); Basophils % (Auto) 0 % (0-2.5); Eosinophils # (Auto) 0.1 Thou/mm3 (0.0-0.5); Eosinophils % (Auto) 4 % (0-10); Hematocrit 34.6 % (41.0-53.0); Hemoglobin 11.8 g/dL (13.5-16.0); Immature Granulocytes Auto 0.01 Thou/mm3 (0.00-0.00); Lymphocytes # (Auto) 0.8 Thou/mm3 (1.0-4.8); Lymphocytes % (Auto) 30 % (10-50); Mean Corpuscular HGB Conc 34.1 g/dl (31.0-37.0); Mean Corpuscular Hemoglobin 32.6 pg (25.0-35.0); Mean Corpuscular Volume 96 fL (80-100); Monocytes # (Auto) 0.2 Thou/mm3 (0.0-0.8); Monocytes % (Auto) 9 % (0-12); Neutrophils # (Auto) 1.5 Thou/mm3 (1.8-7.7); Neutrophils % (Auto) 56 % (37-80); Nucleated Red Blood Cell # 0.00 Thou/mm3 (0.00-0.00); Nucleated Red Blood Cell % 0 /100 WBC (0); RDW Standard Deviation 49.6 fL (35.1-43.9); Red Blood Count 3.62 Miln/mm3 (4.50-5.90); White Blood Count 2.6 Thou/mm3 (3.8-10.6)
[2025-03-19 05:22] LABS: Platelet Count 72 Thou/mm3 (140-440)
[2025-03-19] MEDS: LACTULOSE SYRUP 20 GM/30 ML UDC 30 GM PO ×3 (05:25→16:11)
[2025-03-19 05:33] LABS: Slide Review Platelets confirmed
[2025-03-19 05:56] LABS: Alanine Aminotransferase 19 U/L (10-49); Albumin, Serum 2.9 gm/dL (3.4-4.8); Albumin/Globulin Ratio 0.9 (1.2-2.2); Alkaline Phosphatase 153 U/L (46-116); Anion Gap 6 (7-16); Aspartate Amino Transferase 34 U/L (0-34); BUN/Creatinine Ratio 11 Ratio (12-20); Bilirubin,Total 1.0 mg/dL (0.3-1.2); Blood Urea Nitrogen 13 mg/dL (9-23); Calcium 9.0 mg/dL (8.3-10.6); Calcium (Corrected) 9.9 mg/dL (8.5-10.1); Carbon Dioxide 26.6 mMol/L (20.0-31.0); Chloride 106 mMol/L (98-107); Creatinine (Component) 1.2 mg/dL (0.6-1.3); Estimated Creatinine Clearance 65.2 mL/min (>60); Globulin 3.1 gm/dL (2.3-3.5); Glucose 94 mg/dL (74-106); Magnesium 1.7 mg/dL (1.6-2.6); Osmolality,Calculated 277 (275-295); Phosphorous 3.1 mg/dL (2.4-5.1); Potassium 4.2 mMol/L (3.4-5.1); Sodium 139 mMol/L (136-145); Total Protein 6.0 gm/dL (5.7-8.2); eGFR > 60 See Note
[2025-03-19] MEDS: FERROUS SULF 325 MG TABLET PO (09:33)
[2025-03-19] MEDS: CHOLECALCIFEROL (Vitamin D3) 1,000 IU TABLET 1000 IU PO (09:33)
[2025-03-19] MEDS: MULTIVITAMINS TABLET 1 TAB PO (09:33)
[2025-03-19] MEDS: PANTOPRAZOLE 40 MG TABLET PO (09:33)
[2025-03-19] MEDS: NEOMYCIN SULFATE 500 MG TABLET PO ×2 (09:33→21:04)
[2025-03-19] MEDS: ASCORBIC ACID 250 MG TABLET 500 MG PO (09:33)
--- NOTE | 2025-03-19 10:51 | ESPR_ITS ---
<Statement entered by Edith Queen MD - 03/30/25 08:05> I reviewed above note and agree with findings and plans. I have also personally examined the patient with medicine team and went over assessment and plan with medical team including manufacturing engineering intern and resident physician. Documentation for date of: 03/19/25 Subjective Subjective Interval history: No overnight events. Patient was examined at bedside; they appear A&Ox3 and in NAD. Vitals/labs today significant for WBC 2.6, Hgb 12.4->11.8, platelet count 61->72. Physical exam was benign and unremarkable. Patient is medically cleared and will be discharged pending SNF placement. Exam Vital Signs Temp Pulse Resp BP Pulse Ox O2 Del Method 97.7 F 63 16 131/55 H 94 L Room Air 03/19/25 08:00 03/19/25 08:00 03/19/25 08:00 03/19/25 08:00 03/19/25 08:00 03/19/25 08:00 Narrative Exam General: AOx3, no acute distress, able to speak full sentences HEENT: NC/AT, mucous membranes moist, bilateral sclera anicteric Cardiovascular: regular rate and rhythm, S1/S2 present, no murmurs appreciated Pulmonary: clear to auscultation bilaterally, no rales/rhonchi/wheezes Abdominal: soft, non-tender, non-distended, no rebound/guarding, normal bowel sounds present Musculoskeletal: no peripheral edema, R foot internally rotated (chronic) Skin: warm and dry, intact, B/L lower ext dry and scaly Neuro: CN II-XII intact, no focal deficits Objective Labs 03/19/25 04:53 03/19/25 04:53 Labs: Laboratory Results - last 24 hr 03/19/25 04:53 WBC 2.6 L RBC 3.62 L Hgb 11.8 L Hct 34.6 L MCV 96 MCH 32.6 MCHC 34.1 RDW Std Deviation 49.6 H Plt Count 72 L Neut % (Auto) 56 Lymph % (Auto) 30 [place] % (Auto) 9 Eos % (Auto) 4 Baso % (Auto) 0 Neut # (Auto) 1.5 L Lymph # (Auto) 0.8 L [place] # (Auto) 0.2 Eos # (Auto) 0.1 Baso # (Auto) 0.0 Immature Gran # (Auto) 0.01 H Absolute Nucleated RBC 0.00 Immature Gran % 0 Nucleated RBC % 0 Sodium 139 Potassium 4.2 Chloride 106 Carbon Dioxide 26.6 Anion Gap 6 L BUN 13 Creatinine 1.2 Estim Creat Clear Calc 65.2 eGFR > 60 BUN/Creatinine Ratio 11 L Glucose 94 Calculated Osmolality 277 Calcium 9.0 Corrected Calcium 9.9 Phosphorus 3.1 Magnesium 1.7 Total Bilirubin 1.0 AST 34 ALT 19 Alkaline Phosphatase 153 H Total Protein 6.0 Albumin 2.9 L Globulin 3.1 Albumin/Globulin Ratio 0.9 L Misc Test Result Platelets confirmed Quality Measures Quality Measures VTE prophylaxis Advance care planning discussed with:: patient Assessment & Plan Assessment Current Active Medications: Generic Name Dose Route Start Last Admin Trade Name Freq PRN Reason Stop Dose Admin Acetaminophen 650 mg 03/16/25 00:15 03/18/25 20:22 Acetaminophen 325 Mg Tablet PO 04/15/25 00:14 650 mg Q6H PRN Administration PAIN 1- 3 OR FEVER > 101 Alprazolam 0.25 mg 03/17/25 16:09 03/17/25 16:18 Alprazolam 0.25 Mg Tablet PO 03/22/25 16:08 0.25 mg TID PRN Administration ANXIETY Ascorbic Acid 500 mg 03/16/25 09:00 03/19/25 09:33 Ascorbic Acid 250 Mg Tablet PO 04/15/25 08:59 500 mg QDAY JERAD Administration Ferrous Sulfate 325 mg 03/16/25 09:00 03/19/25 09:33 Ferrous Sulf 325 Mg Tablet PO 04/15/25 08:59 325 mg QDAY JERAD Administration Heparin Sodium (Porcine) 5,000 unit 03/16/25 06:00 03/19/25 05:23 Heparin Sod Inj 5000 Unit/Ml Vial SC 03/30/25 05:59 Not Given Q8HR JERAD Lactulose 30 gm 03/16/25 12:00 03/19/25 05:25 Lactulose Syrup 20 Gm/30 Ml Udc PO 04/15/25 11:59 30 gm QID JERAD Administration Melatonin 3 mg 03/16/25 00:22 03/18/25 22:58 Melatonin 3 Mg Tablet PO 04/15/25 00:21 3 mg HS PRN Administration for supplement Multivitamins 1 tab 03/16/25 09:00 03/19/25 09:33 Multivitamins Tablet PO 04/15/25 08:59 1 tab QDAY JERAD Administration Neomycin Sulfate 500 mg 03/16/25 09:00 03/19/25 09:33 Neomycin Sulfate 500 Mg Tablet PO 03/23/25 08:59 500 mg BID JERAD Administration Non-Formulary Medication 150 mg 03/16/25 09:00 Ibandronate PO 04/15/25 08:59 Q30D JERAD Ondansetron HCl 4 mg 03/16/25 00:15 Ondansetron Inj 2 Mg/Ml Inj 2 Ml IVP 04/15/25 00:14 Q6H PRN NAUSEA OR VOMITING Protocol Pantoprazole Sodium 40 mg 03/16/25 09:00 03/19/25 09:33 Pantoprazole 40 Mg Tablet PO 04/15/25 08:59 40 mg QDAY JERAD Administration Zinc Acetate 50mg 1 ea 03/18/25 21:00 PO 04/17/25 20:59 BID JERAD Sennosides 1 tab 03/16/25 09:00 03/19/25 09:33 Senna Tablet PO 04/15/25 08:59 1 tab QDAY JERAD Administration Protocol Spironolactone 37.5 mg 03/16/25 21:00 03/18/25 20:22 Spironolactone 25 Mg Tablet PO 04/15/25 20:59 37.5 mg HS JERAD Administration Tamsulosin HCl 0.4 mg 03/16/25 21:00 03/18/25 20:22 Tamsulosin Hcl 0.4 Mg Capsule PO 04/15/25 20:59 0.4 mg HS JERAD Administration Vitamin D 1,000 iu 03/16/25 09:00 03/19/25 09:33 Cholecalciferol (Vitamin D3) 1,000 Iu Tablet PO 04/15/25 08:59 1,000 iu QDAY JERAD Administration Plan 64-year-old male with 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 He was transferred from [place] to [facility] on 03/10 for evaluation of left flank pain, with imaging revealing an obstructive renal stone and associated left-sided hydronephrosis. Patient transferred back for requiring new SNF. #Left hydronephrosis with urinary obstruction due to renal calculus #S/P left ureteral stent placement #BPH Patient found to have right staghorn calculus with 2 left ureteral stone with mild upstream hydronephrosis status post left ureteral stent placement Rx: -Continue with indwelling Smith -Urology follow-up in 2 weeks after discharge for void trial -Continue home tamsulosin #Cirrhosis of liver #Jimmy's disease History of Jimmy disease associated cirrhosis with pancytopenia, not acutely decompensated Rx: -Monitor LFTs -Continue spironolactone, Neomycin (lower ammonia level), and lactulose -Zinc supplementation #Pancytopenia Chronic pancytopenia likely 2/2 to liver disease No concerns for acute infection Rx: -Monitor CBC #Osteoporosis Rx: -Continue home Ibandronate Health Maintenance: Diet: cardiac GI prophylaxis: none DVT prophylaxis: heparin 5000u q8h Antibiotics: none CODE STATUS: FULL Disposition: [facility] Patient plan of care was discussed with the attending physician Dr. Queen and Dr. Shilpa Galindo, DO PGY-1
--- NOTE | 2025-03-19 11:22 | PC.SS ---
Per the chart review, [facility], assisted living in [place], accepted the patient under the condition that the patient be connected to the [facility] ([facility] Care Program). YULISSA spoke to Anusha Cavazos , who reported that she had a conversation with the patient's mother yesterday, and she accepted the patient to transition to [place]. Per Anusha, she is requesting one social director to be assigned to the case due to the complexity and multiple paperwork needs for the Master Care program application. YULISSA f/u with SS senior marketing manager Amanda and updated her on Anusha's request. Anusha is requesting that the assigned social director f/u with her tomorrow with updated clinicals, as well as with the patient's Benefits Statement and income information. YULISSA updated Dr. Queen. YULISSA followed up with the patient to check in and provide an update on discharge plans, which the patient approved. The patient requested assistance in activating his cellphone line. YULISSA called Kim, and the patient was then connected to their staff for further assistance.
[2025-03-19] MEDS: ACETAMINOPHEN 325 MG TABLET 650 MG PO (18:28)
[2025-03-19 19:10] LABS: Folate 10.36 ng/mL (>5.38); Vitamin B12 469 pg/mL (211-911)
[2025-03-19] MEDS: SPIRONOLACTONE 25 MG TABLET 37.5 MG PO (21:00)
[2025-03-19] MEDS: TAMSULOSIN HCL 0.4 MG CAPSULE PO (21:00)
--- NOTE | 2025-03-19 21:40 | PC.NURSE ---
called Dr. Oliveira regarding patient's Plt at 72, patient has TID SC heparin, per doctor to hold heparin. Patient also has hematuria in vazquez cath.
[2025-03-19] MEDS: MELATONIN 3 MG TABLET PO (22:53)
[2025-03-20] VITALS (7 sets, daily range): BP systolic 116–126; BP diastolic 60–79; PULSE 66–71; RESP 17–19; TEMP 36.2–36.9; O2SAT 93–95; BMI 13.0
--- NOTE | 2025-03-20 08:55 | PC.SS ---
COTTON BROKER attempted phone contact with [employer] Caregiver Support [phone] ext [phone], no response. COTTON BROKER left voicemail requesting return call. COTTON BROKER attempted phone contact with [employer] staff, Gema Ray [phone] ext [phone], no response. COTTON BROKER left voicemail requesting return call.
--- NOTE | 2025-03-20 08:58 | PC.SS ---
HAM CLERK conducted phone contact with [facility] staff member, Anusha Cavazos . HAM CLERK requested to submit updated clinicals, proof of income and confirmation of patient's [employer]. HAM CLERK provided update that V.A. for proof of income has been initiated, awaiting return call. HAM CLERK to submit updated clinicals and insurance verification via [facility].
[2025-03-20] MEDS: CHOLECALCIFEROL (Vitamin D3) 1,000 IU TABLET 1000 IU PO (09:11)
[2025-03-20] MEDS: PANTOPRAZOLE 40 MG TABLET PO (09:11)
[2025-03-20] MEDS: MULTIVITAMINS TABLET 1 TAB PO (09:11)
[2025-03-20] MEDS: NEOMYCIN SULFATE 500 MG TABLET PO ×2 (09:11→20:10)
[2025-03-20] MEDS: ASCORBIC ACID 250 MG TABLET 500 MG PO (09:11)
[2025-03-20] MEDS: FERROUS SULF 325 MG TABLET PO (09:11)
--- NOTE | 2025-03-20 09:15 | PC.SS ---
Updated clinicals and insurance confirmation submitted to [employer] via [facility].
--- NOTE | 2025-03-20 09:37 | ESPR_ITS ---
<Statement entered by Edith Queen MD - 03/30/25 08:06> I reviewed above note and agree with findings and plans. I have also personally examined the patient with medicine team and went over assessment and plan with medical team including multicultural internship and resident physician. Documentation for date of: 03/20/25 Subjective Subjective Interval history: No acute events overnight.?Patient seen and examined at bedside this AM. Vitals were reviewed and in normal limits.?No further complaints at this time. Still pending placement. Review of systems otherwise negative except what is mentioned above. Exam Vital Signs Temp Pulse Resp BP Pulse Ox O2 Del Method 97.9 F 71 18 125/62 95 Room Air 03/20/25 08:00 03/20/25 08:00 03/20/25 08:00 03/20/25 08:00 03/20/25 08:00 03/20/25 08:00 Narrative Exam General: AOx3, no acute distress, able to speak full sentences HEENT: NC/AT, mucous membranes moist, bilateral sclera anicteric Cardiovascular: regular rate and rhythm, S1/S2 present, no murmurs appreciated Pulmonary: clear to auscultation bilaterally, no rales/rhonchi/wheezes Abdominal: soft, non-tender, non-distended, no rebound/guarding, normal bowel sounds present Musculoskeletal: no peripheral edema, R foot internally rotated (chronic) Skin: warm and dry, intact, B/L lower ext dry and scaly Neuro: CN II-XII intact, no focal deficits Objective Labs 03/19/25 04:53 03/19/25 04:53 Labs: Laboratory Results - last 24 hr 03/18/25 05:52 Vitamin B12 469 Folate 10.36 Quality Measures Quality Measures VTE prophylaxis Advance care planning discussed with:: patient Assessment & Plan Assessment Current Active Medications: Generic Name Dose Route Start Last Admin Trade Name Freq PRN Reason Stop Dose Admin Acetaminophen 650 mg 03/16/25 00:15 03/19/25 18:28 Acetaminophen 325 Mg Tablet PO 04/15/25 00:14 650 mg Q6H PRN Administration PAIN 1- 3 OR FEVER > 101 Alprazolam 0.25 mg 03/17/25 16:09 03/17/25 16:18 Alprazolam 0.25 Mg Tablet PO 03/22/25 16:08 0.25 mg TID PRN Administration ANXIETY Ascorbic Acid 500 mg 03/16/25 09:00 03/20/25 09:11 Ascorbic Acid 250 Mg Tablet PO 04/15/25 08:59 500 mg QDAY JERAD Administration Ferrous Sulfate 325 mg 03/16/25 09:00 03/20/25 09:11 Ferrous Sulf 325 Mg Tablet PO 04/15/25 08:59 325 mg QDAY JERAD Administration Heparin Sodium (Porcine) 5,000 unit 03/16/25 06:00 03/20/25 05:43 Heparin Sod Inj 5000 Unit/Ml Vial SC 03/30/25 05:59 Not Given Q8HR JERAD Lactulose 30 gm 03/16/25 12:00 03/20/25 05:43 Lactulose Syrup 20 Gm/30 Ml Udc PO 04/15/25 11:59 Not Given QID JERAD Melatonin 3 mg 03/16/25 00:22 03/19/25 22:53 Melatonin 3 Mg Tablet PO 04/15/25 00:21 3 mg HS PRN Administration for supplement Multivitamins 1 tab 03/16/25 09:00 03/20/25 09:11 Multivitamins Tablet PO 04/15/25 08:59 1 tab QDAY JERAD Administration Neomycin Sulfate 500 mg 03/16/25 09:00 03/20/25 09:11 Neomycin Sulfate 500 Mg Tablet PO 03/23/25 08:59 500 mg BID JERAD Administration Non-Formulary Medication 150 mg 03/16/25 09:00 Ibandronate PO 04/15/25 08:59 Q30D JERAD Ondansetron HCl 4 mg 03/16/25 00:15 Ondansetron Inj 2 Mg/Ml Inj 2 Ml IVP 04/15/25 00:14 Q6H PRN NAUSEA OR VOMITING Protocol Pantoprazole Sodium 40 mg 03/16/25 09:00 03/20/25 09:11 Pantoprazole 40 Mg Tablet PO 04/15/25 08:59 40 mg QDAY JERAD Administration Zinc Acetate 50mg 1 ea 03/18/25 21:00 PO 04/17/25 20:59 BID JERAD Sennosides 1 tab 03/16/25 09:00 03/20/25 09:11 Senna Tablet PO 04/15/25 08:59 1 tab QDAY JERAD Administration Protocol Spironolactone 37.5 mg 03/16/25 21:00 03/19/25 21:00 Spironolactone 25 Mg Tablet PO 04/15/25 20:59 37.5 mg HS JERAD Administration Tamsulosin HCl 0.4 mg 03/16/25 21:00 03/19/25 21:00 Tamsulosin Hcl 0.4 Mg Capsule PO 04/15/25 20:59 0.4 mg HS JERAD Administration Vitamin D 1,000 iu 03/16/25 09:00 03/20/25 09:11 Cholecalciferol (Vitamin D3) 1,000 Iu Tablet PO 04/15/25 08:59 1,000 iu QDAY JERAD Administration Plan 64-year-old male with 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 He was transferred from [place] to [facility] on 03/10 for evaluation of left flank pain, with imaging revealing an obstructive renal stone and associated left-sided hydronephrosis. Patient transferred back for requiring new SNF. 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 Queen. Maribeth Hernandez, PGY-3
--- NOTE | 2025-03-20 11:05 | CHAP ---
Patient expressed gratitude for visit and prayer. Brought him a New Testament.
[2025-03-20] MEDS: ACETAMINOPHEN 325 MG TABLET 650 MG PO (14:04)
[2025-03-20] MEDS: ZINC GLUCONATE 50 MG TABLET PO ×2 (14:17→20:10)
--- NOTE | 2025-03-20 15:04 | PC.SS ---
OPERATIONS RESEARCH GROUP MANAGER received return call from V[employer] staff, Pricila; confirming that the patient is not service connected from the V[employer]. Patient is not receiving V[employer] benefits at present time. OPERATIONS RESEARCH GROUP MANAGER update [facility].
--- NOTE | 2025-03-20 16:05 | PC.NURSE ---
SS called and ask for patient to have a columbia scale screening. During the screening, the patient answered no to all the questions asked. He did mention that 6 months to a year ago he did have some suicidal ideation in rehab but he no longer feels that way. Called social work therapist and made aware.
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
--- NOTE | 2025-03-20 16:52 | PC.NURSE ---
Pt is upset and wants to speak with social media coordinator. Called and spoke with Ama. She said Salvatore will be here tomorrow and can speak with the patient at that time.
[2025-03-20] MEDS: TAMSULOSIN HCL 0.4 MG CAPSULE PO (20:10)
[2025-03-20] MEDS: SPIRONOLACTONE 25 MG TABLET 37.5 MG PO (20:11)
--- NOTE | 2025-03-20 23:57 | PC.NURSE ---
Pt yelling stating turn on the light! . telephone appointment clerk went into room to turn on light, but patient still yelling about the light. After light was turned on and loading unit operator seating left the room, patient stopped yelling.
[2025-03-21] VITALS (7 sets, daily range): BP systolic 103–137; BP diastolic 53–88; PULSE 67–78; RESP 16–19; TEMP 36.3–37.1; O2SAT 92–94
--- NOTE | 2025-03-21 00:33 | PC.NURSE ---
THAD Martin notified by AURELIA Diaz that patient is refusing to be turned.
[2025-03-21] MEDS: MELATONIN 3 MG TABLET PO (00:38)
--- NOTE | 2025-03-21 07:25 | PC.NURSE ---
DC orders are in from Dr. Hernandez we are waiting for sniff placement.
[2025-03-21] MEDS: ASCORBIC ACID 250 MG TABLET 500 MG PO (09:51)
[2025-03-21] MEDS: NEOMYCIN SULFATE 500 MG TABLET PO ×2 (09:51→20:44)
[2025-03-21] MEDS: CHOLECALCIFEROL (Vitamin D3) 1,000 IU TABLET 1000 IU PO (09:51)
[2025-03-21] MEDS: MULTIVITAMINS TABLET 1 TAB PO (09:51)
[2025-03-21] MEDS: ZINC GLUCONATE 50 MG TABLET PO ×2 (09:51→20:45)
[2025-03-21] MEDS: PANTOPRAZOLE 40 MG TABLET PO (09:51)
[2025-03-21] MEDS: FERROUS SULF 325 MG TABLET PO (09:52)
--- NOTE | 2025-03-21 09:56 | PC.SS ---
TELEMARKETING AGENT conducted phone contact with [facility] staff member, Anusha Cavazos to discuss behavioral concerns presented by the patient during SNF placement. Behaviors include: throwing weights at staff, destruction of property, throwing urine, braking plates to manufacture weapon and aggressive behavior towards other residents. Based on behavioral concerns [facility] has declined patient for placement.
[2025-03-21] MEDS: LACTULOSE SYRUP 20 GM/30 ML UDC 30 GM PO ×2 (11:41→17:52)
--- NOTE | 2025-03-21 14:49 | ESPR_ITS ---
Documentation for date of: 03/21/25 Subjective Subjective Interval history: No acute events overnight.?Patient seen and examined at bedside this AM. Vitals were reviewed and stable.?Patient is watching the [employer] on the television. Appears to be in good spirits. He is tangential in speech, however calm and cooperative. No further complaints at this time. Still pending placement via social worker health services. Patient is clear for discharge. Review of systems otherwise negative except what is mentioned above. Exam Vital Signs Temp Pulse Resp BP Pulse Ox O2 Del Method 98.0 F 78 19 131/64 H 93 L Room Air 03/21/25 12:00 03/21/25 12:00 03/21/25 12:00 03/21/25 12:00 03/21/25 12:00 03/21/25 12:00 Narrative Exam General: AOx3, no acute distress, able to speak full sentences HEENT: NC/AT, mucous membranes moist, bilateral sclera anicteric Cardiovascular: regular rate and rhythm, S1/S2 present, no murmurs appreciated Pulmonary: clear to auscultation bilaterally, no rales/rhonchi/wheezes Abdominal: soft, non-tender, non-distended, no rebound/guarding, normal bowel sounds present Musculoskeletal: no peripheral edema, R foot internally rotated (chronic) Skin: warm and dry, intact, B/L lower ext dry and scaly Neuro: CN II-XII intact, no focal deficits Objective Labs 03/19/25 04:53 03/19/25 04:53 Quality Measures Quality Measures VTE prophylaxis Advance care planning discussed with:: patient Assessment & Plan Assessment Current Active Medications: Generic Name Dose Route Start Last Admin Trade Name Freq PRN Reason Stop Dose Admin Acetaminophen 650 mg 03/16/25 00:15 03/20/25 14:04 Acetaminophen 325 Mg Tablet PO 04/15/25 00:14 650 mg Q6H PRN Administration PAIN 1- 3 OR FEVER > 101 Alprazolam 0.25 mg 03/17/25 16:09 03/17/25 16:18 Alprazolam 0.25 Mg Tablet PO 03/22/25 16:08 0.25 mg TID PRN Administration ANXIETY Ascorbic Acid 500 mg 03/16/25 09:00 03/21/25 09:51 Ascorbic Acid 250 Mg Tablet PO 04/15/25 08:59 500 mg QDAY JEARD Administration Ferrous Sulfate 325 mg 03/16/25 09:00 03/21/25 09:52 Ferrous Sulf 325 Mg Tablet PO 04/15/25 08:59 325 mg QDAY JERAD Administration Heparin Sodium (Porcine) 5,000 unit 03/16/25 06:00 03/21/25 14:15 Heparin Sod Inj 5000 Unit/Ml Vial SC 03/30/25 05:59 Not Given Q8HR JERAD Lactulose 30 gm 03/16/25 12:00 03/21/25 11:41 Lactulose Syrup 20 Gm/30 Ml Udc PO 04/15/25 11:59 30 gm QID JERAD Administration Melatonin 3 mg 03/16/25 00:22 03/21/25 00:38 Melatonin 3 Mg Tablet PO 04/15/25 00:21 3 mg HS PRN Administration for supplement Multivitamins 1 tab 03/16/25 09:00 03/21/25 09:51 Multivitamins Tablet PO 04/15/25 08:59 1 tab QDAY JERAD Administration Neomycin Sulfate 500 mg 03/16/25 09:00 03/21/25 09:51 Neomycin Sulfate 500 Mg Tablet PO 03/23/25 08:59 500 mg BID JERAD Administration Non-Formulary Medication 150 mg 03/16/25 09:00 Ibandronate PO 04/15/25 08:59 Q30D JERAD Ondansetron HCl 4 mg 03/16/25 00:15 Ondansetron Inj 2 Mg/Ml Inj 2 Ml IVP 04/15/25 00:14 Q6H PRN NAUSEA OR VOMITING Protocol Pantoprazole Sodium 40 mg 03/16/25 09:00 03/21/25 09:51 Pantoprazole 40 Mg Tablet PO 04/15/25 08:59 40 mg QDAY JERAD Administration Sennosides 1 tab 03/16/25 09:00 03/21/25 09:51 Senna Tablet PO 04/15/25 08:59 1 tab QDAY JERAD Administration Protocol Spironolactone 37.5 mg 03/16/25 21:00 03/20/25 20:11 Spironolactone 25 Mg Tablet PO 04/15/25 20:59 37.5 mg HS JERAD Administration Tamsulosin HCl 0.4 mg 03/16/25 21:00 03/20/25 20:10 Tamsulosin Hcl 0.4 Mg Capsule PO 04/15/25 20:59 0.4 mg HS JERAD Administration Vitamin D 1,000 iu 03/16/25 09:00 03/21/25 09:51 Cholecalciferol (Vitamin D3) 1,000 Iu Tablet PO 04/15/25 08:59 1,000 iu QDAY JERAD Administration Zinc Gluconate 50 mg 03/20/25 13:45 03/21/25 09:51 Zinc Gluconate 50 Mg Tablet PO 04/19/25 13:44 50 mg BID JERAD Administration Plan 64-year-old male with 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 He was transferred from [place] to [facility] on 03/10 for evaluation of left flank pain, with imaging revealing an obstructive renal stone and associated left-sided hydronephrosis. Patient transferred back for requiring new SNF. 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 Patient plan of care was discussed with the attending physician, Dr. Queen. Maribeth Hernandez, PGY-3 Attending Provider Attestation/Addendum I have examined the patient, reviewed labs and imaging findings, discussed the case with the resident(s), and reviewed entered orders. I agree with the plan of care as outlined in this note, with these additional summaries/recommendations: Patient seen at bedside. No acute overnight events. Patient continues to be medically cleared and pending placement. He is in a pleasant mood and follows instructions. Please see residents note for additional details and management. Dr. Garry MD
--- NOTE | 2025-03-21 15:48 | PC.SS ---
ENVIRONMENTAL PROTECTION FORESTER attempted phone contact with [facility]; to inquire about vacanices. No response. ENVIRONMENTAL PROTECTION FORESTER left voicemail requesting return call.
[2025-03-21] MEDS: SPIRONOLACTONE 25 MG TABLET 37.5 MG PO (20:44)
[2025-03-21] MEDS: TAMSULOSIN HCL 0.4 MG CAPSULE PO (20:44)
[2025-03-22] VITALS (7 sets, daily range): BP systolic 109–137; BP diastolic 58–81; PULSE 67–96; RESP 16–18; TEMP 36.7–37.2; O2SAT 92–95; BMI 27.8
--- NOTE | 2025-03-22 07:56 | PC.SS ---
Updated clinicals submitted to [facility] via e-mail.
--- NOTE | 2025-03-22 07:57 | CHAP ---
Patient was visited by a Spiritual Care Volunteer on 03/21/2025 between 1410 and 1712 and received comfort, encouragement and/or prayer.
[2025-03-22] MEDS: NEOMYCIN SULFATE 500 MG TABLET PO ×2 (09:05→20:39)
[2025-03-22] MEDS: ASCORBIC ACID 250 MG TABLET 500 MG PO (09:05)
[2025-03-22] MEDS: MULTIVITAMINS TABLET 1 TAB PO (09:05)
[2025-03-22] MEDS: FERROUS SULF 325 MG TABLET PO (09:05)
[2025-03-22] MEDS: ZINC GLUCONATE 50 MG TABLET PO ×2 (09:05→20:39)
[2025-03-22] MEDS: CHOLECALCIFEROL (Vitamin D3) 1,000 IU TABLET 1000 IU PO (09:05)
[2025-03-22] MEDS: PANTOPRAZOLE 40 MG TABLET PO (09:06)
--- NOTE | 2025-03-22 11:22 | PC.SS ---
SS extended search for secure lock facility through [place], pending responses.
--- NOTE | 2025-03-22 12:25 | PC.CC ---
Updated home med list against d/c summary from previous hospital.
[2025-03-22] MEDS: HEPARIN SOD INJ 5000 UNIT/ML VIAL SC (14:19)
--- NOTE | 2025-03-22 14:30 | PC.NURSE ---
Facesheet and H&P sent to Dr. Alanis's office
--- NOTE | 2025-03-22 14:34 | PC.NURSE ---
Facesheet and H&P sent to Dr. Suarez's office
--- NOTE | 2025-03-22 15:36 | PC.SS ---
PASSR completed. Patient meets Level II criteria. Patient prescribed Alprazolam for anxiety. PASSR follow up is pending.
--- NOTE | 2025-03-22 15:37 | PC.SS ---
TAPER AND FLOATER fielded phone call from Catherine Guzman [facility] requesting referral on behalf of the patient. Per, Catherine Guzman; following up on referral submitted from [facility]. TAPER AND FLOATER submitted updated clinicals on [facility]. PASSR pending.
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
--- NOTE | 2025-03-22 16:08 | PD.RESPRO ---
Documentation for date of: 03/22/25 Subjective Subjective Interval history: No acute events overnight.?Patient seen and examined at bedside this AM.?Per nursing, patient has had reddish urine output in the Smith bag. However, the patient is not complaining of any pain or discomfort or any other symptoms. Vitals were reviewed and stable.?No further complaints at this time. Currently still pending placement with licensed clinical social worker. Facility search is currently being expanded. Review of systems otherwise negative except what is mentioned above. Exam Vital Signs Temp Pulse Resp BP Pulse Ox O2 Del Method 98.5 F 75 17 111/75 95 Room Air 03/22/25 16:00 03/22/25 16:00 03/22/25 16:00 03/22/25 16:00 03/22/25 16:00 03/22/25 16:00 Narrative Exam General: AOx3, no acute distress, able to speak full sentences HEENT: NC/AT, mucous membranes moist, bilateral sclera anicteric Cardiovascular: regular rate and rhythm, S1/S2 present, no murmurs appreciated Pulmonary: clear to auscultation bilaterally, no rales/rhonchi/wheezes Abdominal: soft, non-tender, non-distended, no rebound/guarding, normal bowel sounds present Musculoskeletal: no peripheral edema, R foot internally rotated (chronic) Skin: warm and dry, intact, B/L lower ext dry and scaly Neuro: CN II-XII intact, no focal deficits Objective Labs 03/23/25 04:25 03/23/25 04:25 Quality Measures Quality Measures VTE prophylaxis Advance care planning discussed with:: patient Assessment & Plan Assessment Current Active Medications: Generic Name Dose Route Start Last Admin Trade Name Freq PRN Reason Stop Dose Admin Acetaminophen 650 mg 03/16/25 00:15 03/20/25 14:04 Acetaminophen 325 Mg Tablet PO 04/15/25 00:14 650 mg Q6H PRN Administration PAIN 1- 3 OR FEVER > 101 Ascorbic Acid 500 mg 03/16/25 09:00 03/22/25 09:05 Ascorbic Acid 250 Mg Tablet PO 04/15/25 08:59 500 mg QDAY JERAD Administration Ferrous Sulfate 325 mg 03/16/25 09:00 03/22/25 09:05 Ferrous Sulf 325 Mg Tablet PO 04/15/25 08:59 325 mg QDAY JERDA Administration Heparin Sodium (Porcine) 5,000 unit 03/16/25 06:00 03/22/25 14:19 Heparin Sod Inj 5000 Unit/Ml Vial SC 03/30/25 05:59 5,000 unit Q8HR JERAD Administration Lactulose 30 gm 03/16/25 12:00 03/22/25 12:00 Lactulose Syrup 20 Gm/30 Ml Udc PO 04/15/25 11:59 Not Given QID JERAD Melatonin 3 mg 03/16/25 00:22 03/21/25 00:38 Melatonin 3 Mg Tablet PO 04/15/25 00:21 3 mg HS PRN Administration for supplement Multivitamins 1 tab 03/16/25 09:00 03/22/25 09:05 Multivitamins Tablet PO 04/15/25 08:59 1 tab QDAY JERAD Administration Neomycin Sulfate 500 mg 03/16/25 09:00 03/22/25 09:05 Neomycin Sulfate 500 Mg Tablet PO 03/23/25 08:59 500 mg BID JERAD Administration Ondansetron HCl 4 mg 03/16/25 00:15 Ondansetron Inj 2 Mg/Ml Inj 2 Ml IVP 04/15/25 00:14 Q6H PRN NAUSEA OR VOMITING Protocol Pantoprazole Sodium 40 mg 03/16/25 09:00 03/22/25 09:06 Pantoprazole 40 Mg Tablet PO 04/15/25 08:59 40 mg QDAY JERAD Administration Sennosides 1 tab 03/16/25 09:00 03/22/25 09:05 Senna Tablet PO 04/15/25 08:59 1 tab QDAY JERAD Administration Protocol Spironolactone 37.5 mg 03/16/25 21:00 03/21/25 20:44 Spironolactone 25 Mg Tablet PO 04/15/25 20:59 37.5 mg HS JERAD Administration Tamsulosin HCl 0.4 mg 03/16/25 21:00 03/21/25 20:44 Tamsulosin Hcl 0.4 Mg Capsule PO 04/15/25 20:59 0.4 mg HS JERAD Administration Vitamin D 1,000 iu 03/16/25 09:00 03/22/25 09:05 Cholecalciferol (Vitamin D3) 1,000 Iu Tablet PO 04/15/25 08:59 1,000 iu QDAY JERAD Administration Zinc Gluconate 50 mg 03/20/25 13:45 03/22/25 09:05 Zinc Gluconate 50 Mg Tablet PO 04/19/25 13:44 50 mg BID JERAD Administration Plan 64-year-old male with 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 He was transferred from [facility] to [facility] on 03/10/2025 for evaluation of left flank pain, with imaging revealing an obstructive renal stone and associated left-sided hydronephrosis. Patient transferred back for requiring new SNF placement. #Hematuria 03/22/2025 Patient noted to have bloody output in the Smith bag. Urine output has been 2.5L in the last 24 hours. Rx: -Consulted Dr. Suarez who will see the patient -Ordered AM CBC -Ordered AM PT, PTT, and INR #Left hydronephrosis with urinary obstruction due to renal calculus #S/p left ureteral stent placement #History of BPH On 03/10/2025 patient found to have right staghorn calculus with 2 left ureteral stones with mild upstream hydronephrosis status post left ureteral stent placement. Patient was planned to follow up with Urology after 2 weeks post-procedure. Rx: -Continue with indwelling Smith -Continue home tamsulosin 0.4 mg HS #History of liver cirrhosis #Jimmy's disease History of Jimmy disease associated cirrhosis with pancytopenia, not acutely decompensated Rx: -Monitor LFTs -Continue spironolactone, Neomycin (lower ammonia level), and lactulose -Zinc supplementation #Pancytopenia Chronic pancytopenia likely 2/2 to liver disease No concerns for acute infection. Rx: -Monitor CBC #Osteoporosis Rx: -Continue home ibandronate #Anxiety/mood disorder Rx: -Continue home alprazolam 0.25 mg TID as needed Health Maintenance: Diet: Cardiac GI prophylaxis: None DVT prophylaxis: Heparin 5000 U q8h Antibiotics: None CODE STATUS: FULL Disposition: [facility] Patient plan of care was discussed with the attending physician, Dr. Queen. Maribeth Hernandez, PGY-3 Attending Provider Attestation/Addendum I have examined the patient, reviewed labs and imaging findings, discussed the case with the resident(s), and reviewed entered orders. I agree with the plan of care as outlined in this note, with these additional summaries/recommendations: Patient seen at bedside. No acute overnight events. Patient continues to be in a pleasant mood. He has 2 friends at bedside today. Per friends at bedside, they have noticed somewhat of a stepwise decline in his mentation over time. Patient does have some cognitive impairment and likely undiagnosed dementia. Consult in-house neurology to asses decision making capacity. Patient has been medically cleared for approximately 72 hours although unfortunately developed an episode of gross hematuria today. Hematuria most likely related to patient's staghorn calculi/nephrolithiasis. Patient had nephrolithiasis addressed at out side hospital and was transferred back. We will consult in-house urology for additional recommendations. Hold all chemical anticoagulation. Continue home zinc supplementation for Jimmy's disease/cirrhosis which is fairly well compensated except for pancytopenia for which she should follow-up with medical appliance maker. Continue as needed alprazolam for anxiety. Patient reports he was in the [employer] and unclear if he has any underlying PTSD but can [facility] with [facility] or [facility]. Patient does have history of anxiety. Patient updated on plan and agreement. All questions answered to satisfaction. Please see residents note for additional details and management. Repeat hematology and chemistry panel in AM. Dr. Garry MD
--- NOTE | 2025-03-22 19:48 | PC.NURSE ---
unable to discharge at this time as patient is pending placement for snf
--- NOTE | 2025-03-22 19:57 | PC.NURSE ---
spoke to dr rodriguez regarding scheduled heparin. Plt is 72 and patient is presenting with hematuria in his vazquez catheter bag. Dr states to hold heparin.
[2025-03-22] MEDS: SPIRONOLACTONE 25 MG TABLET 37.5 MG PO (20:39)
[2025-03-22] MEDS: TAMSULOSIN HCL 0.4 MG CAPSULE PO (20:43)
[2025-03-23] VITALS (7 sets, daily range): BP systolic 98–116; BP diastolic 58–74; PULSE 64–84; RESP 18–19; TEMP 36.8–37.6; O2SAT 92–94
[2025-03-23] MEDS: MELATONIN 3 MG TABLET PO (01:57)
[2025-03-23 06:19] LABS: Basophils # (Auto) 0.0 Thou/mm3 (0.0-0.2); Basophils % (Auto) 0 % (0-2.5); Eosinophils # (Auto) 0.1 Thou/mm3 (0.0-0.5); Eosinophils % (Auto) 3 % (0-10); Hematocrit 35.7 % (41.0-53.0); Hemoglobin 12.2 g/dL (13.5-16.0); Immature Granulocytes Auto 0.01 Thou/mm3 (0.00-0.00); Lymphocytes # (Auto) 0.6 Thou/mm3 (1.0-4.8); Lymphocytes % (Auto) 22 % (10-50); Mean Corpuscular HGB Conc 34.2 g/dl (31.0-37.0); Mean Corpuscular Hemoglobin 32.9 pg (25.0-35.0); Mean Corpuscular Volume 96 fL (80-100); Monocytes # (Auto) 0.3 Thou/mm3 (0.0-0.8); Monocytes % (Auto) 10 % (0-12); Neutrophils # (Auto) 1.7 Thou/mm3 (1.8-7.7); Neutrophils % (Auto) 65 % (37-80); Nucleated Red Blood Cell # 0.00 Thou/mm3 (0.00-0.00); Nucleated Red Blood Cell % 0 /100 WBC (0); Platelet Count 62 Thou/mm3 (140-440); RDW Standard Deviation 51.1 fL (35.1-43.9); Red Blood Count 3.71 Miln/mm3 (4.50-5.90); White Blood Count 2.6 Thou/mm3 (3.8-10.6)
[2025-03-23 06:27] LABS: INR 1.2 (0.9-1.3); Partial Thromboplastin Time 32.6 Seconds (22.0-36.0); Prothrombin Time 12.9 Seconds (9.0-12.2)
[2025-03-23 06:39] LABS: Slide Review Platelets confirmed
[2025-03-23 06:47] LABS: Alanine Aminotransferase 20 U/L (10-49); Albumin, Serum 3.1 gm/dL (3.4-4.8); Albumin/Globulin Ratio 1.0 (1.2-2.2); Alkaline Phosphatase 136 U/L (46-116); Anion Gap 8 (7-16); Aspartate Amino Transferase 28 U/L (0-34); BUN/Creatinine Ratio 12 Ratio (12-20); Bilirubin,Total 1.1 mg/dL (0.3-1.2); Blood Urea Nitrogen 16 mg/dL (9-23); Calcium 8.4 mg/dL (8.3-10.6); Calcium (Corrected) 9.1 mg/dL (8.5-10.1); Carbon Dioxide 26.5 mMol/L (20.0-31.0); Chloride 106 mMol/L (98-107); Creatinine (Component) 1.3 mg/dL (0.6-1.3); Estimated Creatinine Clearance 60.2 mL/min (>60); Globulin 3.0 gm/dL (2.3-3.5); Glucose 91 mg/dL (74-106); Osmolality,Calculated 280 (275-295); Potassium 4.0 mMol/L (3.4-5.1); Sodium 140 mMol/L (136-145); Total Protein 6.1 gm/dL (5.7-8.2); eGFR > 60 See Note
--- NOTE | 2025-03-23 07:58 | ESPR_ITS ---
Documentation for date of: 03/23/25 Subjective Subjective Interval history: No acute events overnight.?Patient seen and examined at bedside this AM.?Patient continues to have blood tinged urine in the Smith bag. Discussed with Dr. Suarez, likely secondary to the staghorn calculi, will likely clear up. Nothing to do for now since the patient very recently had cystoscopy. Labs and vitals were reviewed and within baseline range.?No further complaints at this time. Patient is cleared for discharge, will be set up for transport tomorrow to [facility]. Review of systems otherwise negative except what is mentioned above. Exam Vital Signs Temp Pulse Resp BP Pulse Ox O2 Del Method 99.8 F 64 17 111/63 94 L Room Air 03/24/25 00:00 03/24/25 04:00 03/24/25 04:00 03/24/25 04:00 03/24/25 04:00 03/24/25 04:00 Narrative Exam General: AOx3, no acute distress, able to speak full sentences HEENT: NC/AT, mucous membranes moist, bilateral sclera anicteric Cardiovascular: regular rate and rhythm, S1/S2 present, no murmurs appreciated Pulmonary: clear to auscultation bilaterally, no rales/rhonchi/wheezes Abdominal: soft, non-tender, non-distended, no rebound/guarding, normal bowel sounds present Musculoskeletal: no peripheral edema, R foot internally rotated (chronic) Skin: warm and dry, intact, B/L lower ext dry and scaly Neuro: CN II-XII intact, no focal deficits Objective Labs 03/23/25 04:25 03/23/25 04:25 Quality Measures Quality Measures VTE prophylaxis Advance care planning discussed with:: patient Assessment & Plan Assessment Current Active Medications: Generic Name Dose Route Start Last Admin Trade Name Freq PRN Reason Stop Dose Admin Acetaminophen 650 mg 03/16/25 00:15 03/20/25 14:04 Acetaminophen 325 Mg Tablet PO 04/15/25 00:14 650 mg Q6H PRN Administration PAIN 1- 3 OR FEVER > 101 Ascorbic Acid 500 mg 03/16/25 09:00 03/23/25 10:06 Ascorbic Acid 250 Mg Tablet PO 04/15/25 08:59 500 mg QDAY JERAD Administration Ferrous Sulfate 325 mg 03/16/25 09:00 03/23/25 10:06 Ferrous Sulf 325 Mg Tablet PO 04/15/25 08:59 325 mg QDAY JERAD Administration Finasteride 5 mg 03/23/25 18:45 03/23/25 20:09 Finasteride 5 Mg Tablet PO 04/22/25 18:44 5 mg QDAY JERAD Administration Heparin Sodium (Porcine) 5,000 unit 03/16/25 06:00 03/24/25 05:01 Heparin Sod Inj 5000 Unit/Ml Vial SC 03/30/25 05:59 Not Given Q8HR JERAD Lactulose 30 gm 03/16/25 12:00 03/24/25 05:01 Lactulose Syrup 20 Gm/30 Ml Udc PO 04/15/25 11:59 Not Given QID JERAD Melatonin 3 mg 03/16/25 00:22 03/23/25 01:57 Melatonin 3 Mg Tablet PO 04/15/25 00:21 3 mg HS PRN Administration for supplement Multivitamins 1 tab 03/16/25 09:00 03/23/25 10:06 Multivitamins Tablet PO 04/15/25 08:59 1 tab QDAY JERAD Administration Neomycin Sulfate 500 mg 03/23/25 21:00 03/23/25 20:09 Neomycin Sulfate 500 Mg Tablet PO 03/30/25 20:59 500 mg BID JERAD Administration Ondansetron HCl 4 mg 03/16/25 00:15 Ondansetron Inj 2 Mg/Ml Inj 2 Ml IVP 04/15/25 00:14 Q6H PRN NAUSEA OR VOMITING Protocol Pantoprazole Sodium 40 mg 03/16/25 09:00 03/23/25 10:07 Pantoprazole 40 Mg Tablet PO 04/15/25 08:59 40 mg QDAY JERAD Administration Sennosides 1 tab 03/16/25 09:00 03/23/25 10:07 Senna Tablet PO 04/15/25 08:59 1 tab QDAY JERAD Administration Protocol Spironolactone 37.5 mg 03/16/25 21:00 03/23/25 20:09 Spironolactone 25 Mg Tablet PO 04/15/25 20:59 37.5 mg HS JERAD Administration Tamsulosin HCl 0.4 mg 03/16/25 21:00 03/23/25 20:09 Tamsulosin Hcl 0.4 Mg Capsule PO 12/06/25 20:59 0.4 mg HS JERAD Administration Vitamin D 1,000 iu 03/16/25 09:00 03/23/25 10:07 Cholecalciferol (Vitamin D3) 1,000 Iu Tablet PO 04/15/25 08:59 1,000 iu QDAY JERAD Administration Zinc Gluconate 50 mg 03/20/25 13:45 03/23/25 20:09 Zinc Gluconate 50 Mg Tablet PO 04/19/25 13:44 50 mg BID JERAD Administration Plan 64-year-old male with 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 He was transferred from [place] to [facility] on 03/10/2025 for evaluation of left flank pain, with imaging revealing an obstructive renal stone and associated left-sided hydronephrosis. Patient transferred back for requiring new SNF placement. #Hematuria 03/22/2025 Patient noted to have bloody output in the Smith bag. Urine output has been 2.5L in the last 24 hours. Rx: -Consulted Dr. Suarez - no need for acute intervention, will resolve AM CBC normal AM PT, PTT, and INR normal #Left hydronephrosis with urinary obstruction due to renal calculus #S/p left ureteral stent placement #History of BPH On 03/10/2025 patient found to have right staghorn calculus with 2 left ureteral stones with mild upstream hydronephrosis status post left ureteral stent placement. Patient was planned to follow up with Urology after 2 weeks post- procedure. Rx: -Continue with indwelling Smith -Continue home tamsulosin 0.4 mg HS #History of liver cirrhosis #Jimmy's disease History of Jimmy disease associated cirrhosis with pancytopenia, not acutely decompensated Rx: -Monitor LFTs -Continue spironolactone, Neomycin (lower ammonia level), and lactulose -Zinc supplementation #Pancytopenia Chronic pancytopenia likely 2/2 to liver disease No concerns for acute infection. Rx: -Monitor CBC #Osteoporosis Rx: -Continue home ibandronate #Anxiety/mood disorder Rx: -Continue home alprazolam 0.25 mg TID as needed Health Maintenance: Diet: Cardiac GI prophylaxis: None DVT prophylaxis: Heparin 5000 U q8h Antibiotics: None CODE STATUS: FULL Disposition: [facility] Patient plan of care was discussed with the attending physician, Dr. Queen. Maribeth Hernandez, PGY-3 Attending Provider Attestation/Addendum I have examined the patient, reviewed labs and imaging findings, discussed the case with the resident(s), and reviewed entered orders. I agree with the plan of care as outlined in this note, with these additional summaries/recommendations: Patient seen at bedside. No acute overnight events. Patient continues to be in a pleasant mood. Patient does have some cognitive impairment and likely undiagnosed dementia. Consult in-house neurology to asses decision making capacity. Patient has been medically cleared for approximately 72 hours although unfortunately developed an episode of gross hematuria yesterday. Hematuria most likely related to patient's staghorn calculi/nephrolithiasis. Hemoglobin actually increased today. Patient had nephrolithiasis addressed at out side hospital and was transferred back. We will consult in-house urology for additional recommendations. Hold all chemical anticoagulation. Continue home zinc supplementation for Jimmy's disease/cirrhosis which is fairly well compensated except for pancytopenia for which she should follow-up with electron beam welding machine operator outpatient. Continue as needed alprazolam for anxiety. Patient reports he was in the [employer] and unclear if he has any underlying PTSD but can follow[facility] or [facility]. Patient does have history of anxiety. Continue anxiolytic. Continue wound care for chronic bilateral lower extremity rash. patient updated on plan and agreement. All questions answered to satisfaction. Please see residents note for additional details and management. Dr. Garry MD
[2025-03-23] MEDS: MULTIVITAMINS TABLET 1 TAB PO (10:06)
[2025-03-23] MEDS: ASCORBIC ACID 250 MG TABLET 500 MG PO (10:06)
[2025-03-23] MEDS: FERROUS SULF 325 MG TABLET PO (10:06)
[2025-03-23] MEDS: ZINC GLUCONATE 50 MG TABLET PO ×2 (10:07→20:09)
[2025-03-23] MEDS: CHOLECALCIFEROL (Vitamin D3) 1,000 IU TABLET 1000 IU PO (10:07)
[2025-03-23] MEDS: PANTOPRAZOLE 40 MG TABLET PO (10:07)
--- NOTE | 2025-03-23 13:16 | PC.NURSE ---
Pt stating facility brought in home medication zinc. Clarified with pharmacy, they do have zinc stored for him to be given upon discharge. Belongings list updated.
--- NOTE | 2025-03-23 13:43 | PC.SS ---
BOAT AND PLANT UTILITY SUPERVISOR informed patient that [facility] has accepted the patient for placement. BOAT AND PLANT UTILITY SUPERVISOR informed attempt to secure local placement unsuccessful. BOAT AND PLANT UTILITY SUPERVISOR informed patient that once medically cleared transportation arrangements to be made to transition patient to facility. Patient became upset, BOAT AND PLANT UTILITY SUPERVISOR acknowledged response. Patient able to calm self down. No aggressive behaviors or language presented by the patient. BOAT AND PLANT UTILITY SUPERVISOR updated bedside nurse.
--- NOTE | 2025-03-23 13:46 | PC.SS ---
DIRECTORY CLERK conducted phone contact with [facility] staff, Ag Vance. [facility] to be closed on line. Once closed online, DIRECTORY CLERK will submit to accepting facility [facility].
--- NOTE | 2025-03-23 13:47 | PC.SS ---
Friend, Joon Turcios .
--- NOTE | 2025-03-23 15:06 | PC.SS ---
ENT PHYSICIAN conducted phone contact with [facility] staff Catherine Guzman stating that patient possesses medical clearance for transport. [facility] staff requesting discharge for tomorrow due to distance and staff availability. ENT PHYSICIAN updated bedside nurse and resident. Transport to be scheduled for tomorrow.
--- NOTE | 2025-03-23 15:09 | PC.SS ---
SHIP MATE informed by resident that patient is medically cleared for discharge.
--- NOTE | 2025-03-23 15:10 | PC.SS ---
MEDICAL UNIT SECRETARY contacted [facility] staff, Ag Vance; to notify that [facility] is not closed on line. MEDICAL UNIT SECRETARY informed by [facility] staff that on line closure will take place this afternoon.
--- NOTE | 2025-03-23 15:20 | PC.SS ---
[facility] submitted via File Exchange to Kasi Fuentes.
--- NOTE | 2025-03-23 18:45 | ESCONSULT_ITS ---
RE: MINDY PAGE : 1960 DATE OF CONSULTATION: 03/23/2025 CHIEF COMPLAINT: 1. BPH with urinary obstruction and LUTS. 2. Urinary retention status post placement of Smith catheter. 3. Bilateral renal calculi, renal Staghorn calculi right kidney nonobstructive and 6 mm stone on the left with hydronephrosis status post placement of the stent. HISTORY OF PRESENT ILLNESS: This is a 64-year-old gentleman. He is a resident of [facility]. This patient had an obstructing stone on the left side. He was transferred to [facility] in [place] and evaluated for left flank pain. He was found to have a 6-mm stone in the proximal ureter, was seen by the urologist who placed a left ureteral stent. Patient has no fever chills has gross hematuria placement of catheter The patient has comorbid conditions of 1. 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 2. Osteoporosis. 3. Currently bedbound. The patient denies any prostatic surgery before. He has no fever, chills, nausea, vomiting. For past medical history, family history, review of the systems, and personal history, please refer to the patient's history form dated 03/15/2025, is in HPI in EMR. REVIEW OF THE SYSTEM: All systems reviewed and negative except as documented. PHYSICAL EXAMINATION: Vital Signs: Stable temperature is 98.3, pulse 64, respirations 18, blood pressure 122/63, pulse oximetry 95% on room air. General Condition: Satisfactory, the patient is not in acute distress, he is very slow to respond to questions. HEENT: Normocephalic, atraumatic. Neck: Supple. Thyroid is not enlarged. Extremities: Reveal no erythema, cyanosis, or clubbing. Vital Signs: Stable, they are in HPI in EMR. Chest: Symmetrical. Heart: Regular rate and rhythm. Abdomen: Soft, nontender, no masses. Liver, spleen, kidney not palpable. He has an indwelling Smith catheter. His urine is light colored, there are no blood clots. VARIOUS LABS: Hemoglobin is 12.2, hematocrit is 30.7, serum creatinine is 1.3. CAT scan is reviewed by me. This reveals staghorn calculi right side, 6 mm stone left side. IMPRESSION: 1. Left hydronephrosis post placement of stent for obstructing stone, 6 mm. 2. Benign prostatic hyperplasia with urinary obstruction and LUTS, continue with tamsulosin 0.4 mg p.o. daily, finasteride 5 mg p.o. daily for 2 weeks. 3. On the left side, patient is going to need a cysto, retrograde ureteroscopy, laser stone fragmentation on elective basis. 4. 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 He also has pancytopenia as a result of liver disease. For his gross hematuria recommended urine for cytology he already had a cystoscopy examination done by a urologist in [place] and apparently no tumor was identified. 5. For his gross hematuria at this time urine seems to be pink color getting better his catheter can be DC'd and check his coagulation profile and treat accordingly The patient have an appointment in my office for follow-up. He will be scheduled for the procedure for left proximal ureteral stone which will be cysto, retrograde ureteroscopy and laser stone fragmentation. For his staghorn calculi right side he is going to need PCNL stone fragmentation and stone removal In the meantime, the patient also is being seen by psychiatrist on outpatient basis through hospital for anxiety. He is on alprazolam. I answered all his questions to his satisfaction. DT: 14:06:42 TT: 18:27:00 Ref: [id number] - TID: [id number] MTDD
[2025-03-23] MEDS: TAMSULOSIN HCL 0.4 MG CAPSULE PO (20:09)
[2025-03-23] MEDS: NEOMYCIN SULFATE 500 MG TABLET PO (20:09)
[2025-03-23] MEDS: SPIRONOLACTONE 25 MG TABLET 37.5 MG PO (20:09)
[2025-03-23] MEDS: FINASTERIDE 5 MG TABLET PO (20:09)
[2025-03-24] VITALS (7 sets, daily range): BP systolic 107–122; BP diastolic 61–74; PULSE 64–96; RESP 17–18; TEMP 36.3–37.7; O2SAT 90–97
[2025-03-24] MEDS: PANTOPRAZOLE 40 MG TABLET PO (08:14)
[2025-03-24] MEDS: FINASTERIDE 5 MG TABLET PO (08:14)
[2025-03-24] MEDS: ZINC GLUCONATE 50 MG TABLET PO ×2 (08:15→20:07)
[2025-03-24] MEDS: NEOMYCIN SULFATE 500 MG TABLET PO ×2 (08:15→20:07)
[2025-03-24] MEDS: MULTIVITAMINS TABLET 1 TAB PO (08:15)
[2025-03-24] MEDS: FERROUS SULF 325 MG TABLET PO (08:16)
[2025-03-24] MEDS: ASCORBIC ACID 250 MG TABLET 500 MG PO (08:16)
[2025-03-24] MEDS: CHOLECALCIFEROL (Vitamin D3) 1,000 IU TABLET 1000 IU PO (08:16)
--- NOTE | 2025-03-24 09:08 | PC.SS ---
SS spoke to Dr. Hernandez who stated pt is clear for DC. SS inquired if a mental health eval is needed, per Dr. Hernandez NO MH eval is needed.
--- NOTE | 2025-03-24 10:04 | PC.NURSE ---
0925: Spoke to Dr. Castañeda in regard to plan of care. Per MD, will have neuro come see patient prior to D/C. 0953: Made Ese [facility] aware of patient needing to be seen by Neuro prior to D/C.
[2025-03-24] MEDS: LACTULOSE SYRUP 20 GM/30 ML UDC 30 GM PO ×2 (12:17→18:30)
--- NOTE | 2025-03-24 14:42 | PC.SS ---
Pt pending Neuro consult, when ready pt will DC to: Facility: [facility] Facility P# Address: [address] [place] [address]. [place] [address] Admissions Contact: Liz [phone]
[2025-03-24] MEDS: HEPARIN SOD INJ 5000 UNIT/ML VIAL SC (15:06)
--- NOTE | 2025-03-24 16:24 | PD.RESPRO ---
Documentation for date of: 03/24/25 Subjective Subjective Interval history: No acute events overnight.?Patient seen and examined at bedside this AM.?Patient is pleasant and able to answer questions appropriately. Vitals were reviewed and normal.?Smith bag continues to show some blood tinged urine. No further complaints at this time. Patient has been cleared by Urology, continues on finasteride, and will follow up with Dr. Suarez outpatient for retrograde ureteroscopy and laser stone fragmentation. Pending Neuro evaluation required by the state prior to discharge for capacity evaluation and psych medication recommendations. 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 Review of systems otherwise negative except what is mentioned above. Exam Vital Signs Temp Pulse Resp BP Pulse Ox O2 Del Method 97.4 F 81 17 117/68 91 L Room Air 03/24/25 12:00 03/24/25 12:00 03/24/25 12:00 03/24/25 12:00 03/24/25 12:00 03/24/25 12:00 Narrative Exam General: AOx3, no acute distress, able to speak full sentences HEENT: NC/AT, mucous membranes moist, bilateral sclera anicteric Cardiovascular: regular rate and rhythm, S1/S2 present, no murmurs appreciated Pulmonary: clear to auscultation bilaterally, no rales/rhonchi/wheezes Abdominal: soft, non-tender, non-distended, no rebound/guarding, normal bowel sounds present Musculoskeletal: no peripheral edema, R foot internally rotated (chronic) Skin: warm and dry, intact, B/L lower ext dry and scaly with brown patches Neuro: CN II-XII intact, no focal deficits Objective Labs 03/23/25 04:25 03/23/25 04:25 Quality Measures Quality Measures VTE prophylaxis Advance care planning discussed with:: patient Assessment & Plan Assessment Current Active Medications: Generic Name Dose Route Start Last Admin Trade Name Freq PRN Reason Stop Dose Admin Acetaminophen 650 mg 03/16/25 00:15 03/20/25 14:04 Acetaminophen 325 Mg Tablet PO 04/15/25 00:14 650 mg Q6H PRN Administration PAIN 1- 3 OR FEVER > 101 Ascorbic Acid 500 mg 03/16/25 09:00 03/24/25 08:16 Ascorbic Acid 250 Mg Tablet PO 04/15/25 08:59 500 mg QDAY JERAD Administration Ferrous Sulfate 325 mg 03/16/25 09:00 03/24/25 08:16 Ferrous Sulf 325 Mg Tablet PO 04/15/25 08:59 325 mg QDAY JERAD Administration Finasteride 5 mg 03/23/25 18:45 03/24/25 08:14 Finasteride 5 Mg Tablet PO 04/22/25 18:44 5 mg QDAY JERAD Administration Heparin Sodium (Porcine) 5,000 unit 03/16/25 06:00 03/24/25 15:06 Heparin Sod Inj 5000 Unit/Ml Vial SC 03/30/25 05:59 5,000 unit Q8HR JERAD Administration Lactulose 30 gm 03/16/25 12:00 03/24/25 12:17 Lactulose Syrup 20 Gm/30 Ml Udc PO 04/15/25 11:59 30 gm QID JERAD Administration Melatonin 3 mg 03/16/25 00:22 03/23/25 01:57 Melatonin 3 Mg Tablet PO 04/15/25 00:21 3 mg HS PRN Administration for supplement Multivitamins 1 tab 03/16/25 09:00 03/24/25 08:15 Multivitamins Tablet PO 04/15/25 08:59 1 tab QDAY JERAD Administration Neomycin Sulfate 500 mg 03/23/25 21:00 03/24/25 08:15 Neomycin Sulfate 500 Mg Tablet PO 03/30/25 20:59 500 mg BID JERAD Administration Ondansetron HCl 4 mg 03/16/25 00:15 Ondansetron Inj 2 Mg/Ml Inj 2 Ml IVP 04/15/25 00:14 Q6H PRN NAUSEA OR VOMITING Protocol Pantoprazole Sodium 40 mg 03/16/25 09:00 03/24/25 08:14 Pantoprazole 40 Mg Tablet PO 04/15/25 08:59 40 mg QDAY JERAD Administration Sennosides 1 tab 03/16/25 09:00 03/24/25 08:15 Senna Tablet PO 04/15/25 08:59 1 tab QDAY JERAD Administration Protocol Spironolactone 37.5 mg 03/16/25 21:00 03/23/25 20:09 Spironolactone 25 Mg Tablet PO 04/15/25 20:59 37.5 mg HS JERAD Administration Tamsulosin HCl 0.4 mg 03/16/25 21:00 03/23/25 20:09 Tamsulosin Hcl 0.4 Mg Capsule PO 04/15/25 20:59 0.4 mg HS JERAD Administration Vitamin D 1,000 iu 03/16/25 09:00 03/24/25 08:16 Cholecalciferol (Vitamin D3) 1,000 Iu Tablet PO 04/15/25 08:59 1,000 iu QDAY JERAD Administration Zinc Gluconate 50 mg 03/20/25 13:45 03/24/25 08:15 Zinc Gluconate 50 Mg Tablet PO 04/19/25 13:44 50 mg BID JERAD Administration Plan 64-year-old male with 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 He was transferred from [place] to [facility] ([place] on 03/10/2025 for evaluation of left flank pain, with imaging revealing an obstructive renal stone and associated left-sided hydronephrosis. Patient transferred back for requiring new SNF placement. #Hematuria 03/22/2025 Patient noted to have bloody output in the Smith bag. AM CBC normal AM PT, PTT, and INR normal Rx: -Consulted Dr. Suarez - no need for acute intervention, will follow up outpatient #Left hydronephrosis with urinary obstruction due to renal calculus #S/p left ureteral stent placement #History of BPH On 03/10/2025 patient found to have right staghorn calculus with 2 left ureteral stones with mild upstream hydronephrosis status post left ureteral stent placement. Patient was planned to follow up with Urology after 2 weeks post-procedure. 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 Rx: -Monitor CBC #Osteoporosis Rx: -Continue home ibandronate #Anxiety/mood disorder Rx: -Consulted in house Neurology for capacity evaluation Health Maintenance: Diet: Cardiac GI prophylaxis: None DVT prophylaxis: Heparin 5000 U q8h Antibiotics: None CODE STATUS: FULL Disposition: [facility] Patient plan of care was discussed with the attending physician, Dr. Castañeda. Maribeth Hernandez, PGY-3 Attending Provider Attestation/Addendum I have examined the patient, reviewed labs and imaging findings, discussed the case with the resident(s), and reviewed entered orders. I agree with the plan of care as outlined in this note, with these additional summaries/recommendations: Patient seen at bedside. No acute overnight events. Patient continues to be in a pleasant mood with intermittent episodes of anxiety. He currently denies suicidal ideation or wanting to hurt others. He denies hearing voices. Patient does appear to have have some cognitive impairment with anxiety at times. Consult in-house neurology to asses decision making capacity. Also possible as patient's underlying Jimmy's disease may contribute to patient's anxiety at time versus PTSD from serving in the . Patient was seen by urology for gross hematuria secondary to staghorn calculi. Urology recommends PT, PTT, platelet count, and urine for cytology which we ordered and patient will likely have to follow-up urine cytopathology report results outpatient. Continue Smith catheter and recommended to follow-up with urology outpatient. Continue Flomax. 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 Continue as needed alprazolam for anxiety. Patient reports he was in the [employer] and unclear if he has any underlying PTSD but [facility]. Patient does have history of anxiety. Continue anxiolytic. Continue wound care for chronic bilateral lower extremity rash. patient updated on plan and agreement. All questions answered to satisfaction. Please see residents note for additional details and management. Dr. Garry MD
--- NOTE | 2025-03-24 19:44 | PD.RESCONSUL ---
HPI Data of Consult Consult date: 03/24/25 Requesting Physician: Valente Castañeda MD Admitting Provider: Phani Oglesby DO Attending Provider: Pablo Crawford MD Primary Care Provider: Darrel Linares DO Consult Narrative History of present illness: Mr. 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 Urology was consulted and are following patient in house. Patient was transferred from a facility with a 5150 hold for harm to others. 03/24 : Patient examined at bedside, no acute events overnight. He was able to answer questions appropriately, however showed significant mood variation. Patient appeared to get very emotional when talking about going to a different facility, however in the next second thoughts to have a very happy affect. S/p urology intervention, hematuria noted in the Smith. Patient has been cleared by Urology, continues on finasteride, and will follow up with Dr. Suarez outpatient for outpatient laser stone fragmentation. Upon neuro evaluation, patient marked forward tilt of his neck, endorses to multiple falls and neck injuries. He has significant mood variation and will need outpatient capacity evaluation, and likely optimization of his psych medications. At this time he has a unspecified psych disorder. cc:: cc: Valente Castañeda MD Review of Systems Review of Systems ROS Unobtainable: unobtainable due to mental status Exam Vital Signs Temp Pulse Resp BP Pulse Ox O2 Del Method 98.7 F 96 18 122/74 97 Room Air 03/24/25 16:00 03/24/25 16:00 03/24/25 16:00 03/24/25 16:00 03/24/25 16:00 03/24/25 16:00 Narrative Exam Constitutional Alert, oriented x1 and comfortable HEENT Vision grossly intact, PERRLA. Patent nares. Trachea midline. Respiratory Chest normal on inspection and clear to auscultation bilaterally. Cardiovascular S1 and S2 audible, RRR. No murmurs or carotid bruit. No gross JVD. Abdominal Soft and BS + ; non tender to palpation in all quadrants. Genitourinary No bladder tenderness, no flank pain. Smith in place, trixie hematuria noted Musculoskeletal Extremities tone within normal limits. No LE edema. Neurological CN II - XII grossly intact. Extremity motor and sensation grossly intact. Skin Bilateral lower extremity seeping wounds noted, sloughing of skin. No swelling, erythema and multiple wounds with crusting crusting up to knees. Psychiatric Patient has significant variation in mood and affect, but is cooperative. Results Labs 03/23/25 04:25 03/23/25 04:25 Quality Measures Quality Measures VTE prophylaxis Advance care planning discussed with:: patient Medications Home Medications and Allergies Home Medications ?Medication ?Instructions ?Recorded ?Confirmed ?Type ascorbic acid (vitamin C) 500 mg 500 mg PO QDAY 04/05/23 03/15/25 History tablet (Vitamin C) cholecalciferol (vitamin D3) 25 50 mcg PO QDAY 04/05/23 03/15/25 History mcg (1,000 unit) tablet (Vitamin D3) lactulose 20 gram/30 mL oral 30 g PO QID high ammonia level 04/05/23 03/15/25 History solution pantoprazole 40 mg tablet,delayed 40 mg PO QDAY 04/05/23 03/15/25 History release spironolactone 25 mg tablet 37.5 mg PO HS fluid 04/05/23 03/15/25 History retention/cirrhosis melatonin 3 mg tablet 3 mg PO HS PRN for supplement 02/05/24 03/15/25 History zinc acetate 50 mg (zinc) capsule 50 mg PO BID anastasia's disease 02/05/24 03/15/25 History tamsulosin 0.4 mg capsule 0.4 mg PO HS 03/15/25 03/15/25 History ferrous sulfate 325 mg (65 mg 325 mg PO QDAY 03/16/25 03/16/25 History iron) tablet (Lawanda-Time) ibandronate 150 mg tablet 150 mg PO QDAY 03/16/25 03/16/25 History neomycin 500 mg tablet 500 mg PO BID 03/16/25 03/16/25 History acetaminophen 500 mg capsule 500 mg PO Q8H PRN pain 03/22/25 03/22/25 History aluminum-mag hydroxide-simethicone 30 ml PO [id number] bloating/gas 03/22/25 03/22/25 History 225 mg-200 mg-25 mg/5 mL oral susp calcium carbonate 260 mg PO BID 03/22/25 03/22/25 History furosemide 40 mg tablet 40 mg PO .QD 03/22/25 03/22/25 History Held on 03/23/25. Instructions: Resume on 03/30/25. Hold until follow up with a primary doctor hydrocodone 5 mg-acetaminophen 325 1 tab PO Q8H PRN moderate pain 03/22/25 03/22/25 History mg tablet (scale score 5-6) Allergies Allergy/AdvReac Type Severity Reaction Status Date / Time clavulanic acid (From Allergy Severe Hives Verified 11/14/24 08:40 Augmentin) Visit Medications Acetaminophen (Acetaminophen 325 Mg Tablet) 650 mg PO Q6H PRN PRN Reason: PAIN 1- 3 OR FEVER > 101 Stop: 04/15/25 00:14 Last Admin: 03/20/25 14:04 Dose: 650 mg Ascorbic Acid (Ascorbic Acid 250 Mg Tablet) 500 mg PO QDAY [facility] Stop: 04/15/25 08:59 Last Admin: 03/24/25 08:16 Dose: 500 mg Ferrous Sulfate (Ferrous Sulf 325 Mg Tablet) 325 mg PO QDAY [facility] Stop: 04/15/25 08:59 Last Admin: 03/24/25 08:16 Dose: 325 mg Finasteride (Finasteride 5 Mg Tablet) 5 mg PO QDAY [facility] Stop: 04/22/25 18:44 Last Admin: 03/24/25 08:14 Dose: 5 mg Heparin Sodium (Porcine) (Heparin Sod Inj 5000 Unit/Ml Vial) 5,000 unit SC Q8HR [facility] Stop: 03/30/25 05:59 Last Admin: 03/24/25 15:06 Dose: 5,000 unit Lactulose (Lactulose Syrup 20 Gm/30 Ml Udc) 30 gm PO QID [facility] Stop: 04/15/25 11:59 Last Admin: 03/24/25 18:30 Dose: 30 gm Melatonin (Melatonin 3 Mg Tablet) 3 mg PO HS PRN PRN Reason: for supplement Stop: 04/15/25 00:21 Last Admin: 03/23/25 01:57 Dose: 3 mg Multivitamins (Multivitamins Tablet) 1 tab PO QDAY [facility] Stop: 04/15/25 08:59 Last Admin: 03/24/25 08:15 Dose: 1 tab Neomycin Sulfate (Neomycin Sulfate 500 Mg Tablet) 500 mg PO BID [facility] Stop: 03/30/25 20:59 Last Admin: 03/24/25 08:15 Dose: 500 mg Ondansetron HCl (Ondansetron Inj 2 Mg/Ml Inj 2 Ml) 4 mg IVP Q6H PRN; Protocol PRN Reason: NAUSEA OR VOMITING Stop: 04/15/25 00:14 Pantoprazole Sodium (Pantoprazole 40 Mg Tablet) 40 mg PO QDAY [facility] Stop: 04/15/25 08:59 Last Admin: 03/24/25 08:14 Dose: 40 mg Sennosides (Senna Tablet) 1 tab PO QDAY [facility]; Protocol Stop: 04/15/25 08:59 Last Admin: 03/24/25 08:15 Dose: 1 tab Spironolactone (Spironolactone 25 Mg Tablet) 37.5 mg PO [facility] Stop: 04/15/25 20:59 Last Admin: 03/23/25 20:09 Dose: 37.5 mg Tamsulosin HCl (Tamsulosin Hcl 0.4 Mg Capsule) 0.4 mg PO [facility] Stop: 04/15/25 20:59 Last Admin: 03/23/25 20:09 Dose: 0.4 mg Vitamin D (Cholecalciferol (Vitamin D3) 1,000 Iu Tablet) 1,000 iu PO QDAY [facility] Stop: 04/15/25 08:59 Last Admin: 03/24/25 08:16 Dose: 1,000 iu Zinc Gluconate (Zinc Gluconate 50 Mg Tablet) 50 mg PO BID [facility] Stop: 04/19/25 13:44 Last Admin: 03/24/25 08:15 Dose: 50 mg Discontinued Medications Alprazolam (Alprazolam 0.25 Mg Tablet) 0.25 mg PO TID PRN PRN Reason: ANXIETY Stop: 03/22/25 16:08 Last Admin: 03/17/25 16:18 Dose: 0.25 mg Neomycin Sulfate (Neomycin Sulfate 500 Mg Tablet) 500 mg PO BID [facility] Stop: 03/23/25 08:59 Last Admin: 03/22/25 20:39 Dose: 500 mg Non-Formulary Medication (Lactulose) 30 gm PO QID [facility] Stop: 04/15/25 05:59 Last Admin: 03/17/25 04:35 Dose: Not Given Non-Formulary Medication (Ibandronate) 150 mg PO Q30D [facility] Stop: 04/15/25 08:59 Assessment & Plan Plan Mr. 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 Urology was consulted and are following patient in house. Patient was transferred from a facility with a 5150 hold for harm to others. Psych - Mood Disorder - Was sent to [facility] from a facility with 5150 hold due to risk of harm to others - Continues to have significant variation in mood and affect, but is cooperative Recommendations: - Patient will need close follow-up outpatient for capacity evaluation due to mood variation - He will need optimization of his psych medications as he definitely has a mood disorder - He is very emotional about change of facility, appears to be very attached to nurses at [facility]. Patient was counseled, may need to be placed at a different facility due to psych risk. - Otherwise safe for discharge once hold removed, he is not at risk of self harm or harm to others Thank you for the consult. Neurology will continue to follow the case with you Plan of care discussed with attending Neurologist Dr Crawford, - Phani Oglesby M.D. PGY3 Disclaimer: Minor errors in fashion consultant selling may be present as this note was dictated using voice recognition software. Attending Provider Attestation/Addendum I personally have seen and examined the patient at the bedside and I agreed with the resident's findings, assessment and plan of care. Patient has no significant memory or cognitive impairment but because of fluctuation in mood, very hard to assess his capacity at this time. Continue with the current management and follow-up with psych as an outpatient to optimize his mental health.
[2025-03-24] MEDS: TAMSULOSIN HCL 0.4 MG CAPSULE PO (20:07)
[2025-03-24] MEDS: SPIRONOLACTONE 25 MG TABLET 37.5 MG PO (20:07)
[2025-03-25] VITALS: BP 92/56; PULSE 72; RESP 18; TEMP 37.3; O2SAT 92
[2025-03-25] MEDS: MELATONIN 3 MG TABLET PO (01:45)
[2025-03-25 04:00] VITALS: BP 108/66; PULSE 69; RESP 18; TEMP 37.4; O2SAT 95
[2025-03-25 07:38] VITALS: BP 122/64; PULSE 71; RESP 16; TEMP 36.1; O2SAT 93
[2025-03-25] MEDS: ASCORBIC ACID 250 MG TABLET 500 MG PO (08:10)
[2025-03-25] MEDS: MULTIVITAMINS TABLET 1 TAB PO (08:11)
[2025-03-25] MEDS: FERROUS SULF 325 MG TABLET PO (08:11)
[2025-03-25] MEDS: NEOMYCIN SULFATE 500 MG TABLET PO (08:11)
[2025-03-25] MEDS: PANTOPRAZOLE 40 MG TABLET PO (08:11)
[2025-03-25] MEDS: ZINC GLUCONATE 50 MG TABLET PO (08:11)
[2025-03-25] MEDS: FINASTERIDE 5 MG TABLET PO (08:11)
[2025-03-25] MEDS: CHOLECALCIFEROL (Vitamin D3) 1,000 IU TABLET 1000 IU PO (08:11)
--- NOTE | 2025-03-25 09:29 | PC.SS ---
Addendum entered by ZEN Lyles 03/25/25 12:31: ASW submitted discharge summary to [facility] via [employer]. Addendum entered by ZEN Lyles 03/25/25 12:28: ASW notified patient of ETA, patient verbalized understanding. Addendum entered by ZEN Lyles 03/25/25 12:26: ASW coordinated transportation with [place] ETA 14:10, ASW notified patients family, bedside nurse riccardo, and [facility] admissions. [facility] facility number [phone]. Addendum entered by ZEN Lyles 03/25/25 11:44: ASW met with patient at bedside to confirm d/c plan, patient is agreeble to d/c and requested ASW schedule transpiration at a later time so that his family can bead picker his cellphone. ASW will coordinate transportation and inform patient family of ETA. Addendum entered by ZEN Lyles 03/25/25 11:35: ASW attempted to call admissions, however phone number was incorrect, ASW called main facility # for [facility], they confirmed that it would be okay to d/c today and requested later d/c due to being short staffed. Original Note: ASW spoke to patients mother Karrie to confirm d/c plan to [facility], Karrie inquired [facility], ASW informed patients mother that based on the notes left by previous elementary school social worker, due to altercations at previous SNF they are not agreeable to accept patient at their facility again due to safety concerns. Karrie asked why patient is not being sent to facilities near by, ASW informed that near by facilities declined due to behaviors or unable to meet specialty needs. ASW informed that transportation will be arranged once doctors have orders in.
[2025-03-25 12:00] VITALS: BP 113/70; PULSE 74; RESP 19; TEMP 36.2; O2SAT 92
--- NOTE | 2025-03-25 17:41 | ESDS_ITS ---
Planned Discharge Date 03/25/25 DS: Providers Provider Date of admission: 03/15/25 22:31 Primary care physician: Darrel Linares DO Admitting Provider: Darrel Linares DO Attending Provider on Admission: Valente Castañeda MD Consults: 03/16/25 00:23 Referral Wound Care Routine Comment: 03/16/25 00:48 Referral Physical Therapy Routine Comment: Physician Instructions: Referral Registered Dietitian Routine Comment: 03/22/25 14:22 Consult to Urology Routine Comment: Staghorn calculi s/p left ureteral stent Consulting Provider: Juan Suarez 03/23/25 10:55 Consult to Neurology / Tele-Neurology Routine Comment: Capacity evaluation, psych history Consulting Provider: Pablo Crawford Attending Provider on DC: Valente Castañeda MD Discharging Provider: Alexander Massey MD DS: Diagnosis Problem List Completed Was Problem List Reviewed/Reconciled?: Yes Hospital Course Hospital Course Hospital course: Mr. 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 Patient was transferred to [facility] in [place] for Urology intervention. Patient underwent cystoscopy and left ureteral stent placement without complication. Patient was then transferred back to [facility] on 03/16/2025 for appropriate nursing home placement. Patient was a group home resident since 2022 at [facility] however was rejected for return to this facility due to history of altercations with the staff and other facility residents, despite being moved to different rooms. Throughout this hospitalization, patient was able to answer questions appropriately, however showed significant mood variation. Patient did not require any antipsychotics, sedatives, or restraints during this hospitalization and was able to cooperate with physical therapy. Around 03/21 hematuria was noted in the Smith bag and our local Urologist was asked to see the patient. Patient was recommended to start on finasteride and continue tamsulosin, and will follow up with Dr. Suarez outpatient for outpatient laser stone fragmentation. Neurology was consulted for capacity evaluation, was recommended outpatient referral to have this completed. At this time patient has an unspecified psych/mood disorder. Patient was determined medically cleared and stable for discharge to group home care facility. #Hematuria #Left hydronephrosis with urinary obstruction due to renal calculus #S/p left ureteral stent placement #History of BPH #History of liver cirrhosis #Jimmy's disease #Pancytopenia #Osteoporosis #Anxiety/mood disorder Patient plan of care was discussed with the attending physician, Dr. Castañeda. Maribeth Hernandez, PGY-3 Time Spent with Patient Time attestation: Total time spent providing and/or coordinating discharge services: Time spent: Greater than 30 minutes Exam Vital Signs Temp Pulse Resp BP Pulse Ox O2 Del Method 97.1 F 74 19 113/70 92 L Room Air 03/25/25 12:00 03/25/25 12:00 03/25/25 12:00 03/25/25 12:00 03/25/25 12:00 03/25/25 07:38 Narrative Exam General: AOx3, no acute distress, able to speak full sentences HEENT: NC/AT, mucous membranes moist, bilateral sclera anicteric Cardiovascular: regular rate and rhythm, S1/S2 present, no murmurs appreciated Pulmonary: clear to auscultation bilaterally, no rales/rhonchi/wheezes Abdominal: soft, non-tender, non-distended, no rebound/guarding, normal bowel sounds present Musculoskeletal: no peripheral edema, R foot internally rotated (chronic) Skin: warm and dry, intact, B/L lower ext dry and scaly with brown patches Neuro: CN II-XII intact, no focal deficits Discharge Plan Plan Patient Disposition: [facility] Patient condition on transfer: Stable Care Plan Goals: Discharge Recommendations: -Follow up with PCP within 1 week of discharge -Start taking finasteride 5 mg once daily -Continue tamsulosin 0.4 mg once daily -Recommended to take ferrous sulfate every other -Continue rest of medications as previously prescribed -Return to the ED or call EMS if symptoms return and/or worsen. Prescriptions/Referrals Prescriptions/Med Rec: New finasteride 5 mg tablet 5 mg PO QDAY 30 Days Qty: 30 0RF Continued spironolactone 25 mg Tablet 37.5 mg PO HS ascorbic acid (vitamin C) [Vitamin C] 500 mg Tablet 500 mg PO QDAY pantoprazole 40 mg Tablet,Delayed Release (Dr/Ec) 40 mg PO QDAY cholecalciferol (vitamin D3) [Vitamin D3] 25 mcg (1,000 unit) Tablet 50 mcg PO QDAY lactulose 20 gram/30 mL Solution 30 g PO QID melatonin 3 mg Tablet 3 mg PO HS PRN (Reason: for supplement) zinc acetate 50 mg (zinc) Capsule 50 mg PO BID Multivitamin 50 Plus Tablet 1 tab PO QDAY Qty: 30 0RF tamsulosin 0.4 mg capsule 0.4 mg PO HS Patient Comments: TAKE 1 CAPSULE BY MOUTH DAILY FOR 14 DAYS. neomycin 500 mg tablet 500 mg PO BID ibandronate 150 mg tablet 150 mg PO QDAY calcium carbonate 260 mg calcium (648 mg) tablet 260 mg PO BID hydrocodone-acetaminophen 5-325 mg tablet 1 tab PO Q8H PRN (Reason: moderate pain (scale score 5-6)) Patient Comments: NTE 3 tab per day alum-mag hydroxide-simeth 225-200-25 mg/5 mL suspension 30 ml PO [id number] acetaminophen 500 mg capsule 500 mg PO Q8H PRN (Reason: pain) Changed ferrous sulfate [Lawanda-Time] 325 mg (65 mg iron) tablet 325 mg PO Q48H Qty: 30 2RF Held furosemide 40 mg tablet 40 mg PO .QD Hold Instructions: Resume on 03/30/25. Hold until follow up with a primary doctor Discontinued alprazolam 1 mg tablet 1 mg PO HS acetaminophen 325 mg capsule 325 mg PO Q6H PRN (Reason: mild pain (scale score 1-4)) Referrals: Darrel Linares DO [Primary Care Provider, Internal Medicine] Patient/Caregiver Discharge Instructions Discharge Activity: as per physical therapy and activity as tolerated Education Materials: Having a Ureteral Stent, Understanding Kidney Stones, Identifying Kidney Stones, Preventing Kidney Stones Print Language: Slovenian Stand Alone Forms: Karin Award Info., Patient Portal Info Letter Discharge Order Discharge Orders: Discharge (Routine); Ordered 03/25/25 Ordered By: Alexander Massey Quality Discharge Quality Measures VTE prophylaxis Attestestation Attestation I have examined the patient, reviewed labs and imaging findings, discussed the case with the resident(s), and reviewed entered orders. I agree with the plan of care as outlined in this note. Time Spent: [address] Garry MD
== END 2025-03-25 14:05 | disposition skilled nursing facility (03) | DRG 694 ==
PROVIDERS: Student in an Organized Health Care Education/Training Program; Admitting Provider Student in an Organized Health Care Education/Training Program; PCP Student in an Organized Health Care Education/Training Program; Visit Provider Student in an Organized Health Care Education/Training Program
DX: N13.2 Hydronephrosis with renal and ureteral calculous obstruction (principal); D61.818 Other pancytopenia; N13.8 Other obstructive and reflux uropathy; F41.9 Anxiety disorder, unspecified; R31.0 Gross hematuria; K74.60 Unspecified cirrhosis of liver; N40.1 Benign prostatic hyperplasia with lower urinary tract symptoms; E83.01 Wilson's disease; F39 Unspecified mood [affective] disorder; M81.0 Age-related osteoporosis without current pathological fracture; Z74.01 Bed confinement status
CPT/HCPCS: 36415; 80053; 82607; 82746; 83735; 84100; 85025; 85610; 85730; 87081; 96127; 97162; J1644; A9270